=== PATIENT | female | born 1960 | race Caucasian/White ===

== ENCOUNTER 2021-01-04 15:04 | Inpatient (IN) ==
--- NOTE | 2021-01-04 16:29 | Emergency Department Note ---
History of Present Illness General Chief complaint: Swelling/Edema to Extremity Stated complaint: L LEG SWELLING, SOB, REF BY DOCTOR Time Seen by Provider: 01/04/21 16:28 Source: patient Mode of arrival: ambulatory Limitations: no limitations History of Present Illness Provider complaint: Shortness of breath, leg pain Onset (ago): day(s) 2 Location: chest and lower extremity Severity: moderate Maximum Pain Intensity: 5 Quality: + other (Discomfort) Relieved By: + none Exacerbated By: + movement Associated symptoms: + cough, + nausea/vomiting and + shortness of breath; no confusion, no diaphoresis, no fever/chills, no headaches, no loss of appetite, no malaise or no weakness Treatments prior to arrival: none Home Medications Medication Instructions Recorded Confirmed Type amlodipine 5 mg tablet 5 mg PO DAILY 01/04/21 01/04/21 History gabapentin 300 mg capsule 300 mg PO TID 01/04/21 01/04/21 History Past Med/Surg History Medical History (Updated 01/05/21 @ 00:53 by Tushar Jacobs MD) H/O: HTN (hypertension) Surgical History (Updated 01/04/21 @ 16:41 by Tushar Jacobs MD) History of knee replacement Social History (Updated 01/04/21 @ 16:42 by Tushar Jacobs MD) Smoking Status: Never smoker Hx Alcohol Use: Yes Hx Substance Use: No current occupational status: employed 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 and A total of 10 systems reviewed and were otherwise negative Physical Exam Vital Signs Vital Signs - 24 hr 01/04/21 15:14 01/04/21 17:26 01/04/21 17:27 Temperature 36.6 C Temperature Source Temporal Artery Scan Pulse Rate 81 73 Pulse Rate from SpO2 Sensor Pulse Rhythm Regular Pulse Strength Normal Respiratory Rate 18 16 Respiratory Effort / Characteristics Non-Labored Spontaneous Respiratory Depth Normal Respiratory Pattern Regular Blood Pressure 161/88 H Blood Pressure Mean 112 Pulse Oximetry 97 97 Oxygen Delivery Method Room Air Room Air Sepsis Recent Fever Within 48 Hours No Sepsis New/Unexplained Change in Mental Status No Sepsis Action Taken by Nursing No Action Required 01/04/21 17:30 01/04/21 18:06 01/04/21 19:03 Temperature Temperature Source Pulse Rate 77 85 73 Pulse Rate from SpO2 Sensor 75 80 73 Pulse Rhythm Pulse Strength Respiratory Rate 17 22 20 Respiratory Effort / Characteristics Respiratory Depth Respiratory Pattern Blood Pressure 154/82 H 134/91 Blood Pressure Mean 106 105 Pulse Oximetry 97 94 98 Oxygen Delivery Method Room Air Sepsis Recent Fever Within 48 Hours Sepsis New/Unexplained Change in Mental Status Sepsis Action Taken by Nursing 01/04/21 19:30 01/04/21 20:00 01/04/21 20:30 Temperature Temperature Source Pulse Rate 70 74 67 Pulse Rate from SpO2 Sensor 72 72 67 Pulse Rhythm Pulse Strength Respiratory Rate 18 17 16 Respiratory Effort / Characteristics Respiratory Depth Respiratory Pattern Blood Pressure 134/93 136/79 130/76 Blood Pressure Mean 106 98 94 Pulse Oximetry 96 97 96 Oxygen Delivery Method Room Air Room Air Room Air Sepsis Recent Fever Within 48 Hours Sepsis New/Unexplained Change in Mental Status Sepsis Action Taken by Nursing 01/04/21 21:00 01/04/21 21:30 Temperature Temperature Source Pulse Rate 69 73 Pulse Rate from SpO2 Sensor 71 74 Pulse Rhythm Pulse Strength Respiratory Rate 17 19 Respiratory Effort / Characteristics Respiratory Depth Respiratory Pattern Blood Pressure 139/81 149/92 H Blood Pressure Mean 100 111 Pulse Oximetry 95 95 Oxygen Delivery Method Room Air Room Air Sepsis Recent Fever Within 48 Hours Sepsis New/Unexplained Change in Mental Status Sepsis Action Taken by Nursing GENERAL: Wearing glasses and a mask. NAD, non-toxic. EYE EXAM: Normal conjunctiva. PERRL, no anisocoria and EOM's grossly intact w/o pain. NECK: Supple, no nuchal rigidity, no adenopathy, non-tender. No signs of meningismus. LUNGS: Clear to auscultation. Normal chest wall mechanics. HEART: NSR, subtle systolic ejection murmur noted. ABDOMEN: Abdomen soft, non-tender, normo-active bowel sounds, no masses, no rebound or guarding. BACK: No CVA TTP. SKIN: No rashes and no bruising. UPPER EXTREMITIES: Upper extremities are grossly normal. LOWER EXTREMITIES: Grossly normal, no obvious asymmetry or edema, negative Homans' sign, well-healed left anterior knee incisional scar. NEURO EXAM: A&O x3, cranial nerves II-XII grossly intact, normal speech, moves all 4 extremities on command w/o issue. Course Course Cardiac monitoring: An order was placed for continuous cardiac monitoring. The monitor shows a rate of 81 with sinus rhythm. Administered Medications Discontinued Medications Aspirin (Aspirin Chew 324 Mg) 324 mg PO NOW STA Stop: 01/04/21 19:57 Last Admin: 01/04/21 20:05 Dose: 324 mg Documented by: [id number] Sodium Chloride (Nss) 500 mls @ 999 mls/hr IV .Q31M STA Stop: 01/04/21 17:09 Last Infusion: 01/04/21 19:02 Dose: 0 mls/hr Documented by: [id number] Admin: 01/04/21 17:42 Dose: 999 mls/hr Documented by: [id number] Ioversol (Optiray 320 125ml) 116 ml IV ONCE ONE Stop: 01/04/21 17:57 Last Admin: 01/04/21 17:56 Dose: 116 ml Documented by: [id number] Nitroglycerin (Nitroglycerin Sl 0.4 Mg/Tab Tab) 0.4 mg SL NOW STA Stop: 01/04/21 19:57 Last Admin: 01/04/21 20:05 Dose: 0.4 mg Documented by: [id number] Medical Decision Making Differential Diagnosis Reactive airway disease, pneumonia, pneumothorax, COPD, CHF, infections, cardiac ischemia, pulmonary embolism, musculoskeletal, gastrointestinal, as well as other pathologies. Medical Records Attestation: I reviewed the patient's medical records. Home Medications Current Medication List: was personally reviewed by me Laboratory Data Attestation: I reviewed the patient's lab results. Result diagrams: 01/04/21 16:56 01/04/21 16:56 Lab Results 01/04/21 01/04/21 01/04/21 Range/Units 16:56 16:56 19:43 WBC 7.44 (4.8-10.8) K/uL RBC 4.53 (4.2-5.4) M/uL Hgb 14.2 (12.0-16.0) g/dL Hct 41.7 (37-47) % MCV 92.1 (80-100) fL MCH 31.3 (25-34) pg MCHC 34.1 (32-36) g/dL RDW Std Deviation 45.3 (36.4-46.3) fL RDW Coeff of Mil 13.4 (11.5-14.5) % Plt Count 285 (130-400) K/uL MPV 11.0 H (7.4-10.4) fL Immature Gran % (Auto) 0.3 % Neut % (Auto) 62.5 % Lymph % (Auto) 24.7 % [place] % (Auto) 7.9 % Eos % (Auto) 4.3 % Baso % (Auto) 0.3 % Neut # (Auto) 4.65 (1.4-6.5) K/uL Lymph # (Auto) 1.84 (1.2-3.4) K/uL [place] # (Auto) 0.59 (0.11-0.59) K/uL Eos # (Auto) 0.32 (0-0.5) K/uL Baso # (Auto) 0.02 (0-0.2) K/uL Immature Gran # (Auto) 0.02 (0.00-0.02) K/uL Sodium 140 (136-145) mmol/L Potassium 3.9 (3.5-5.1) mmol/L Chloride 109 H (98-107) mmol/L Carbon Dioxide 25 (21-32) mmol/L Anion Gap 6.0 (3-11) BUN 11 (7-18) mg/dl Creatinine 0.74 (0.6-1.2) mg/dl Est Cr Clr Drug Dosing 99.3 ml/min Est GFR ( Amer) 102.8 ml/min Est GFR (Non-Af Amer) 88.7 ml/min BUN/Creatinine Ratio 14.3 (10-20) Glucose 87 (70-99) mg/dl Calcium 9.4 (8.5-10.1) mg/dl Magnesium 2.3 (1.8-2.4) mg/dl Total Bilirubin 0.2 (0.2-1) mg/dl AST 22 (15-37) U/L ALT 26 (12-78) U/L Alkaline Phosphatase 118 H (45-117) U/L Troponin I < 0.015 0.015 (0-0.045) ng/ml NT-Pro-B Natriuret Pep 82 (0-900) pg/ml Total Protein 7.6 (6.4-8.2) gm/dl Albumin 3.7 (3.4-5.0) gm/dl Globulin 3.9 (2.5-4.0) gm/dl Albumin/Globulin Ratio 0.9 (0.9-2) COVID-19 Eval Order SARS-CoV-2 (PCR) (Negative) 01/04/21 01/04/21 Range/Units 21:25 21:25 WBC (4.8-10.8) K/uL RBC (4.2-5.4) M/uL Hgb (12.0-16.0) g/dL Hct (37-47) % MCV (80-100) fL MCH (25-34) pg MCHC (32-36) g/dL RDW Std Deviation (36.4-46.3) fL RDW Coeff of Mil (11.5-14.5) % Plt Count (130-400) K/uL MPV (7.4-10.4) fL Immature Gran % (Auto) % Neut % (Auto) % Lymph % (Auto) % [place] % (Auto) % Eos % (Auto) % Baso % (Auto) % Neut # (Auto) (1.4-6.5) K/uL Lymph # (Auto) (1.2-3.4) K/uL [place] # (Auto) (0.11-0.59) K/uL Eos # (Auto) (0-0.5) K/uL Baso # (Auto) (0-0.2) K/uL Immature Gran # (Auto) (0.00-0.02) K/uL Sodium (136-145) mmol/L Potassium (3.5-5.1) mmol/L Chloride (98-107) mmol/L Carbon Dioxide (21-32) mmol/L Anion Gap (3-11) BUN (7-18) mg/dl Creatinine (0.6-1.2) mg/dl Est Cr Clr Drug Dosing ml/min Est GFR ( Amer) ml/min Est GFR (Non-Af Amer) ml/min BUN/Creatinine Ratio (10-20) Glucose (70-99) mg/dl Calcium (8.5-10.1) mg/dl Magnesium (1.8-2.4) mg/dl Total Bilirubin (0.2-1) mg/dl AST (15-37) U/L ALT (12-78) U/L Alkaline Phosphatase (45-117) U/L Troponin I (0-0.045) ng/ml NT-Pro-B Natriuret Pep (0-900) pg/ml Total Protein (6.4-8.2) gm/dl Albumin (3.4-5.0) gm/dl Globulin (2.5-4.0) gm/dl Albumin/Globulin Ratio (0.9-2) COVID-19 Eval Order Covid19 at [facility] SARS-CoV-2 (PCR) NEGATIVE (Negative) Imaging Data Radiologist's Impression: Chest CTA 01/04/21 16:39 CT angio chest PE protocol CT DOSE: 571.95 mGy.cm HISTORY: 60 years-old Female with Dyspnea. Acute shortness of breath TECHNIQUE: Multiple CTA images of the chest were obtained after the intravenous administration of 116 ml Optiray. Coronal and sagittal MIPS were obtained from the axial data set and were submitted for review. All measurements were obtained according to NASCET criteria. A dose lowering technique was utilized adhering to the principles of ALARA. COMPARISON: None. FINDINGS: CTA: The heart is upper limits of normal in size. Mild coronary artery calcifications no thoracic aortic aneurysm or dissection. No pulmonary emboli identified. Inferior lung bases are not imaged. CT CHEST: Unremarkable thyroid. There is no adenopathy. No pneumothorax, pleural effusion, airspace consolidation or overt pulmonary edema. 4 mm solid nodule of the right lower lobe, image 108 series 4. The central airways are patent. No pneumoperitoneum. Mild wall thickening of the distal esophagus with tiny hiatal hernia. Gastric banding. Colonic diverticulosis unremarkable soft tissues. There is no acute fracture. IMPRESSION: 1. No acute intrathoracic abnormality. No pulmonary emboli. 2. No pleural effusion or adenopathy. 3. 4 mm solid nodule of the right lower lobe. Please refer to below summary of Fleischner criteria recommendations for follow- up of incidental CT nodules (Emely Donaldson, Guidelines for management of small pulmonary nodules detected on CT scans: A statement from the Fleischner Society, Radiology 237: [phone].) SOLID NODULES Solitary nodule size: <6 mm * Low risk patients: no follow-up needed * high risk patients: optional CT at 12 months Note: newly detected indeterminate nodule in persons 35 years of age or older. * Low risk patients: minimal or absent history of smoking and/or other known r isk factors * high risk patients: history of smoking or of other known risk factors (e.g. first degree relative with lung cancer, or exposure to asbestos, radon, uranium) * if a nodule up to 8 mm is partly solid or is ground glass further follow-up is required after 24 months to exclude possible slow growing adenocarcinoma (TORRES) ACT 112: Negative or not required by law. The above report was generated using voice recognition software. It may contain grammatical, syntax or spelling errors. Electronically signed by: Nilay Harris M.D. 01/04/2021 6:15 PM Venous Doppler Study 01/04/21 16:39 US venous doppler LE LT HISTORY: 60 years-old Female Dyspnea, recent nerve ablation w/ calf pain acute pain and swelling of the left lower leg COMPARISON: None TECHNIQUE: Multiple real-time sonographic images of the left lower extremity deep venous structures were obtained assessing grayscale appearance, color and spectral flow FINDINGS: Normal flow, compressibility, phasicity and augmentation. IMPRESSION: No sonographic evidence of deep venous thrombosis. ACT 112: Negative or not required by law. The above report was generated using voice recognition software. It may contain grammatical, syntax or spelling errors. Electronically signed by: Nilay Harris M.D. 01/04/2021 6:48 PM ECG Data Additional Comments: Normal sinus rhythm, rate of 74, normal intervals, normal axis, T wave version in lead III and V3. MDM Narrative Patient presented due to concern for left lower extremity swelling associated shortness of breath. The patient is a family history of CABG in mother in her 50s. The patient has complained of some exertional symptoms as well. Patient denies infectious symptoms. Patient denies any fevers or chills. Blood work is obtained along with an ultrasound of the left lower extremity and did have a CT angiography of the chest completed. Patient's EKG does show some T wave inversions anteriorly and inferiorly. The patient CT angiography does show no evidence of PE. The patient's ultrasound does not show any evidence of DVT. Patient was still having some discomfort patient was tried with some aspirin and nitro which did not much improve her symptoms. After further discussion the patient does have a heart score of 4 puts the patient at moderate risk. I did speak the on-call hospitalist Dr. Campbell and the patient was admitted to the medicine service. Patient's initial troponin was less than 0.015 and her repeat was 0.015. Impression & Plan Atypical chest pain, Acute dyspnea Discharge Plan Visit Data Chief Complaint: Swelling/Edema to Extremity Stated Complaint: L LEG SWELLING, SOB, REF BY DOCTOR ED Provider: Tushar Jacobs Discharge Problem: Atypical chest pain, Acute dyspnea Patient Disposition: Admitted As Inpatient Discharge Instructions Interventions: ED Discharge Assessment Last Done: 01/04/21 23:49
[2021-01-04] MEDS ORDERED: SODIUM CHLORIDE 0.9% 500 ML IV STA (16:39)
[2021-01-04 17:07] LABS: Basophils # (auto) 0.02 K/uL (0-0.2); Basophils % (auto) 0.3 %; Eosinophils # (auto) 0.32 K/uL (0-0.5); Eosinophils % (auto) 4.3 %; Hematocrit (blood only) 41.7 % (37-47); Hemoglobin 14.2 g/dL (12.0-16.0); Immature Granulocytes # (auto) 0.02 K/uL (0.00-0.02); Immature Granulocytes % (auto) 0.3 %; Lymphocytes # (auto) 1.84 K/uL (1.2-3.4); Lymphocytes % (auto) 24.7 %; Mean Corpuscular Hemoglobin 31.3 pg (25-34); Mean Corpuscular Hgb Conc 34.1 g/dL (32-36); Mean Corpuscular Volume 92.1 fL (80-100); Monocytes # (auto) 0.59 K/uL (0.11-0.59); Monocytes % (auto) 7.9 %; Neutrophils # (auto) 4.65 K/uL (1.4-6.5); Neutrophils % (auto) 62.5 %; Platelet Count 285 K/uL (130-400); RDW Coefficient of Variation 13.4 % (11.5-14.5); RDW Standard Deviation 45.3 fL (36.4-46.3); Red Blood Count 4.53 M/uL (4.2-5.4); White Blood Count 7.44 K/uL (4.8-10.8)
[2021-01-04 17:24] LABS: Alanine Aminotransferase 26 U/L (12-78); Albumin Level 3.7 gm/dl (3.4-5.0); Aspartate Aminotransferase 22 U/L (15-37); BUN Creatinine Ratio 14.3 (10-20); Blood Urea Nitrogen 11 mg/dl (7-18); Calcium 9.4 mg/dl (8.5-10.1); Carbon Dioxide 25 mmol/L (21-32); Chloride 109 mmol/L (98-107); Creatinine Clr Calc Pharmacy 99.3 ml/min; Est GFR (African American) 102.8 ml/min; Est GFR (Non-African American) 88.7 ml/min; Glucose 87 mg/dl (70-99); Magnesium 2.3 mg/dl (1.8-2.4); Potassium 3.9 mmol/L (3.5-5.1); Sodium 140 mmol/L (136-145)
[2021-01-04 17:28] LABS: Albumin Globulin Ratio 0.9 (0.9-2); Alkaline Phosphatase 118 U/L (45-117); Bilirubin,Total 0.2 mg/dl (0.2-1); Globulin 3.9 gm/dl (2.5-4.0); NT Pro B Type Natriuretic Pept 82 pg/ml (0-900); Total Protein 7.6 gm/dl (6.4-8.2); Troponin I < 0.015 ng/ml (0-0.045)
[2021-01-04] MEDS ORDERED: OPTIRAY 320 125ml IV ONE (17:56)
--- NOTE | 2021-01-04 18:17 | CT Scan Report ---
CT angio chest PE protocol CT DOSE: 571.95 mGy.cm HISTORY: 60 years-old Female with Dyspnea. Acute shortness of breath TECHNIQUE: Multiple CTA images of the chest were obtained after the intravenous administration of 116 ml Optiray. Coronal and sagittal MIPS were obtained from the axial data set and were submitted for review. All measurements were obtained according to NASCET criteria. A dose lowering technique was u tilized adhering to the principles of ALARA. COMPARISON: None. FINDINGS: CTA: The heart is upper limits of normal in size. Mild coronary artery calcifications no thoracic aortic a neurysm or dissection. No pulmonary emboli identified. Inferior lung bases are not imaged. CT CHEST: Unremarkable thyroid. There is no adenopathy. No pneumothorax, pleural effusion, airspace consolidati on or overt pulmonary edema. 4 mm solid nodule of the right lower lobe, image 108 series 4. The centr al airways are patent. No pneumoperitoneum. Mild wall thickening of the distal esophagus with tiny hiatal hernia. Gastric ba nding. Colonic diverticulosis unremarkable soft tissues. There is no acute fracture. IMPRESSION: 1. No acute intrathoracic abnormality. No pulmonary emboli. 2. No pleural effusion or adenopathy. 3. 4 mm solid nodule of the right lower lobe. Please refer to below summary of Fleischner criteria recommendations for follow-up of incidental CT n odules (Emely Donaldson, Guidelines for management of small pulmonary nodules detected on CT scans: A sta tement from the Fleischner Society, Radiology 237: [phone].) SOLID NODULES Solitary nodule size: <6 mm * Low risk patients: no follow-up needed * high risk patients: optional CT at 12 months Note: newly detected indeterminate nodule in persons 35 years of age or older. * Low risk patients: minimal or absent history of smoking and/or other known risk factors * high risk patients: history of smoking or of other known risk factors (e.g. first degree relative with lung cancer, or exposure to asbestos, radon, uranium) * if a nodule up to 8 mm is partly solid or is ground glass further follow-up is required after 24 m onths to exclude possible slow growing adenocarcinoma (TORRES) ACT 112: Negative or not required by law. The above report was generated using voice recognition software. It may contain grammatical, syntax o r spelling errors. Electronically signed by: Nilay Harris M.D. 01/04/2021 6:15 PM
--- NOTE | 2021-01-04 18:50 | Ultrasound Report ---
US venous doppler LE LT HISTORY: 60 years-old Female Dyspnea, recent nerve ablation w/ calf pain acute pain and swelling of the left lower leg COMPARISON: None TECHNIQUE: Multiple real-time sonographic images of the left lower extremity deep venous structures w ere obtained assessing grayscale appearance, color and spectral flow FINDINGS: Normal flow, compressibility, phasicity and augmentation. IMPRESSION: No sonographic evidence of deep venous thrombosis. ACT 112: Negative or not required by law. The above report was generated using voice recognition software. It may contain grammatical, syntax o r spelling errors. Electronically signed by: Nilay Harris M.D. 01/04/2021 6:48 PM
[2021-01-04] MEDS ORDERED: NITROGLYCERIN SL 0.4 MG/TAB TAB SL STA (19:56)
[2021-01-04] MEDS ORDERED: ASPIRIN CHEW 324 MG PO STA (19:56)
--- NOTE | 2021-01-05 00:17 | History and Physical Report ---
DATE OF ADMISSION: 01/04/2021. CHIEF COMPLAINT: Chest pain on exertion, shortness of breath on exertion, and edema in lower extremities. HISTORY OF PRESENT ILLNESS: This is a 60-year-old female with past medical history significant for intermittent asthma, obesity, hot flashes due to menopause. The patient recently had nerve ablation of the left lower extremity. The patient states in April of 2019, she had a left total knee arthroplasty. Since then, she is having a lot of pain in left knee and recently in [place] on 01/01/2021 she had ablation of the nerves that improved her pain, but she still has some pain in the calf.Yesterday she noticed swelling in the legs and also she has some shortness of breath with exertion and some chest tightness. Chest tightness and Sob were more with exertion and at rest was better. That is the reason she came here and she had lower extremity Doppler and CTA of the chest, which were unremarkable. She has significant family history of heart disease. Maternal grandfather had HI at the age of 50. Currently resting comfortably and hemodynamically stable. She has some headache with nitro. Nitro did not relieve her chest tightness. She has no blurred visions,no double visions, no earache, no runny nose, no sore throat. Occasionally she has dry cough going on for the last more than a year. Denies any fever or chills. Appetite is okay. No dysphagia. Was nauseous. No abdominal pain, normal bowel and bladder movements. Denies any blood in the stools or black stools. No hematuria. Currently resting comfortably and hemodynamically stable. ALLERGIES: ALLERGIES TO ADHESIVE TAPE, CAT DANDER, CHLORHEXIDINE, CODEINE, LATEX, PERCOCET, POLLEN, TOMATO. PAST MEDICAL HISTORY: As mentioned above. PAST SURGICAL HISTORY: Left total knee arthroplasty; biopsy of left breast lesion; colonoscopy; dental surgery; left great toe bone spur removal; gastric band placement, laparoscopic; left ACL repair; left revision of the knee; partial hysterectomy for cervical dysplasia; bilateral breast biopsy for fibrocystic disease. MEDICATIONS: Currently the patient is on amlodipine 5 mg p.o. daily, gabapentin 300 mg p.o. daily, albuterol p.r.n. FAMILY HISTORY: Significant for mother has Crohn's disease, melanoma; father has prostate cancer, parkinsonism, abdominal and femoral artery aneurysm, melanoma, hypertension, diabetes; sister has Crohn's disease; sister has melanoma; paternal grandmother has uterine cancer; maternal grandfather had HI at age of 50; paternal grandfather had colon cancer at age of 70. SOCIAL HISTORY: . Former smoker, quit in 1997. Alcohol, drinks one to two every 2-3 months. No drug use. REVIEW OF SYSTEMS: As per HPI. Rest of the review of systems is negative. PHYSICAL EXAMINATION: GENERAL: The patient is of moderate build, not in acute distress. VITAL SIGNS: Temperature 36.6, pulse 73, respiratory rate 19, blood pressure 149/92, oxygen 95% on room air. HEENT: Pupils equal, round and reactive to light. Oral mucosa moist. NECK: No JVD. No carotid bruits. CARDIOVASCULAR: S1 and S2 heard. Regular rate and rhythm. No murmur, no gallop. RESPIRATORY SYSTEM: Normal AP diameter. No accessory muscle use. No wheezing, no crackles. ABDOMEN: Soft, bowel sounds are present, nontender, no distention. CENTRAL NERVOUS SYSTEM: Cranial nerves II through XII are grossly intact, nonfocal. EXTREMITIES: Trace pedal edema, slight erythematous changes seen in the left ankle region. LABORATORY DATA: WBC 7.4, hemoglobin 14.2, hematocrit 41.7, platelets 285. Sodium 140, potassium 3.9, chloride 109, bicarbonate 25, BUN 11, creatinine 0.7, serum glucose 87, calcium 9.4, magnesium 2.3, total bilirubin 0.2, AST 22, ALT 26, alkaline phosphatase 118. Troponin I less than 0.015. BNP 82. IMAGING DATA: Venous Doppler study of the left lower extremity, no DVT. CTA of the chest, no PE, no acute findings. A 4 mm solid nodule of the right lower lobe. EKG: Normal sinus rhythm, rate of 74, no acute ST changes seen. ASSESSMENT AND PLAN: This is a 60-year-old female who presents with lower extremity edema and shortness of breath and chest pain on exertion. 1. Lower extremity edema status post nerve ablation on 01/01/2021 for left knee pain post knee replacement. The pain is improved, but she developed swelling. The swelling seems to be getting better. No deep venous thrombosis on the Doppler. 2. Chest pain and shortness of breath, more with exertion: EKG and troponins are unremarkable so far. CTA of the chest unremarkable. As the patient has risk factors of hypertension, obesity, and age, we will rule out acute coronary syndrome with serial enzymes and echo. Will keep her n.p.o. until seen by cardiology. Further recommendations as per cardiology. Monitor in the [employer] tele. Follow the lipid profile. 3. Hypertension: Continue amlodipine. 4. History of intermittent asthma: albuterol p.r.n. 5. Obesity: Needs counseling. 6. Lung nodule .4mm solid nodule right lower lobe. Needs followup. 7. Deep venous thrombosis prophylaxis: Sequential compression devices for now. DISPOSITION: Observation in [facility]. PT/OT prior to discharge. Social service to help with discharge planning. Level 1 full code. Job ID: [id number] MTDD
[2021-01-05] MEDS ORDERED: NITROGLYCERIN SL 0.4 MG/TAB TAB SL PRN (00:45)
[2021-01-05] MEDS ORDERED: ONDANSETRON INJ 2 MG/ML 2 ML VIAL IV PRN (00:45)
[2021-01-05] MEDS ORDERED: ALBUTEROL HFA 8 GM INHALER INH PRN (00:45)
[2021-01-05] MEDS ORDERED: PATIENT'S ALLERGY INFO NEEDS ENTERED SCH (01:15)
[2021-01-05] MEDS: ACETAMINOPHEN 325 MG TAB PO PRN ×2 (04:17→10:15)
[2021-01-05] MEDS ORDERED: MoRPHine SULFATE 4 MG/ML 1 ML CARP\\VIAL IV STA (05:34)
[2021-01-05 05:38] LABS: Basophils # (auto) 0.02 K/uL (0-0.2); Basophils % (auto) 0.4 %; Eosinophils # (auto) 0.36 K/uL (0-0.5); Eosinophils % (auto) 6.8 %; Hematocrit (blood only) 39.2 % (37-47); Hemoglobin 13.1 g/dL (12.0-16.0); Immature Granulocytes # (auto) 0.01 K/uL (0.00-0.02); Immature Granulocytes % (auto) 0.2 %; Lymphocytes # (auto) 1.71 K/uL (1.2-3.4); Lymphocytes % (auto) 32.5 %; Mean Corpuscular Hemoglobin 30.6 pg (25-34); Mean Corpuscular Hgb Conc 33.4 g/dL (32-36); Mean Corpuscular Volume 91.6 fL (80-100); Mean Platelet Volume 10.5 fL (7.4-10.4); Monocytes # (auto) 0.56 K/uL (0.11-0.59); Monocytes % (auto) 10.6 %; Neutrophils % (auto) 49.5 %; Platelet Count 246 K/uL (130-400); RDW Coefficient of Variation 13.4 % (11.5-14.5); RDW Standard Deviation 44.7 fL (36.4-46.3); Red Blood Count 4.28 M/uL (4.2-5.4); White Blood Count 5.26 K/uL (4.8-10.8)
[2021-01-05] MEDS ORDERED: MoRPHine SULFATE 4 MG/ML 1 ML CARP\\VIAL ONE (05:50)
[2021-01-05 05:54] LABS: BUN Creatinine Ratio 11.2 (10-20); Calcium 8.5 mg/dl (8.5-10.1); Creatinine Clr Calc Pharmacy 109.8 ml/min; Est GFR (African American) 111.5 ml/min; Est GFR (Non-African American) 96.2 ml/min; Magnesium 2.3 mg/dl (1.8-2.4); Potassium 3.7 mmol/L (3.5-5.1)
[2021-01-05 05:59] LABS: Troponin I 0.02 ng/ml (0-0.045)
[2021-01-05] MEDS ORDERED: SODIUM CHLORIDE 0.9% 1000ML 1,000 ML IV SCH (06:30)
[2021-01-05] MEDS: NITROGLYCERIN 2% OINTMENT 30GM TUBE EXT SCH ×2 (07:13→14:01)
[2021-01-05] MEDS: GABAPENTIN 300 MG CAP PO SCH ×3 (07:51→20:15)
--- NOTE | 2021-01-05 08:21 | Electrocardiogram Report ---
Test Reason : Blood Pressure : / mmHG Vent. Rate : 074 BPM Atrial Rate : 074 BPM P-R Int : 166 ms QRS Dur : 084 ms QT Int : 408 ms P-R-T Axes : 000 -09 016 degrees QTc Int : 452 ms Normal sinus rhythm Poor R wave progression, consider anterior HI vs. lead placement vs. LVH Abnormal ECG No previous ECGs available Confirmed by Mathew Eid ([id number]) on 01/05/2021 8:21:03 AM Referred By: REFERRED SELF Confirmed By:Mathew Eid
--- NOTE | 2021-01-05 08:50 | Electrocardiogram Report ---
Test Reason : Blood Pressure : / mmHG Vent. Rate : 080 BPM Atrial Rate : 080 BPM P-R Int : 168 ms QRS Dur : 084 ms QT Int : 408 ms P-R-T Axes : 028 -13 001 degrees QTc Int : 470 ms Sinus rhythm with frequent Premature ventricular complexes Otherwise normal ECG When compared with ECG of 04-JAN-2021 17:28, Premature ventricular complexes are now Present Confirmed by Mathew Eid ([id number]) on 01/05/2021 8:49:58 AM Referred By: REFERRED SELF Confirmed By:Mathew Eid
[2021-01-05] MEDS ORDERED: amLODIPine BESYLATE 5 MG TAB PO SCH (09:00)
--- NOTE | 2021-01-05 09:00 | Electrocardiogram Report ---
Test Reason : Blood Pressure : / mmHG Vent. Rate : 074 BPM Atrial Rate : 074 BPM P-R Int : 162 ms QRS Dur : 086 ms QT Int : 424 ms P-R-T Axes : -04 -10 004 degrees QTc Int : 470 ms Normal sinus rhythm Poor R wave progression, consider anterior AL vs. lead placement vs. LVH Abnormal ECG When compared with ECG of 05-JAN-2021 05:05, Premature ventricular complexes are no longer Present Confirmed by Mathew Eid ([id number]) on 01/05/2021 9:00:12 AM Referred By: REFERRED SELF Confirmed By:Mathew Eid
--- NOTE | 2021-01-05 09:42 | Cardiology Consultation ---
Date of Consultation January 05, 2021 Assessment & Plan (1) Chest pain at rest: (2) HTN (hypertension): (3) Dyslipidemia: (4) Family history of ischemic heart disease: 60-year-old female with history of hypertension, dyslipidemia, history of tobacco abuse, obesity/inactivity, and family history of coronary artery disease as described. Patient presents with waxing and waning chest discomfort initially with activity and now nearly constant at rest. EKGs demonstrate new T wave changes anteriorly and subtly inferiorly. Troponins as follows: <0.015, 0.015, 0.20 ng/mL. Resting echocardiography shows preserved LV systolic function without wall motion abnormality. CT of the chest notable for coronary artery calcifications. Options of management discussed with patient. Risks and benefits of diagnostic cardiac catheterization discussed. Patient wishes to proceed accordingly. Initiate Aspirin and statin. Hold nitro paste, RE: headache; administer acetaminophen. Supervising Physician Co-Signing Physician Notes Patient was seen and examined and personally discussed procedure and plans. Ongoing or recurrent symptoms with patient concern regarding multiple cardiovascular risk factors and recurrent complaints. Procedure and risks of diagnostic cardiac catheterization and coronary intervention if indicated were discussed in detail and informed consent was obtained. Further recommendations pending the results of study to be performed this morning History of Present Illness Reason for Consultation: Chest pain Requesting Physician: Adrian Attending Physician: Norberto History of Present Illness Patient is a 60-year-old female who is being seen at the request of Dr. Campbell. Reasons for consultation include chest pain and shortness of breath. The patient notes having previously undergone knee surgery and more recently undergoing nerve ablation of the left lower extremity at [place]. She notes concern for a DVT/PE due to pain, swelling, shortness of breath, and chest pres sure. Ultrasound of the left lower extremity showed no DVT. CT scan of the chest showed no acute intrathoracic abnormality. No pulmonary emboli. Coronary artery calcifications were observed. A 4 mm solid nodule of the right lower lung was also noted. The patient's chest pressure seemed to start on Monday, initially occurring with activity [place]. She describes it as a chest pressure that is waxed and waned that was present more now than not. She also notes an intermittent sharp, stabbing left scapular pain as if someone was twisting and knife into her shoulder. She notes mild diaphoresis with the pressure. Notes no significant improvement with use of nitroglycerin though with resultant headache. Patient notes prior cardiac work-up approximately 2 years ago while living in the [facility]. Work-up at that time was negative. Last year, December 2019, the patient underwent Lexiscan nuclear stress testing which was nonischemic. Risk factors include hypertension, dyslipidemia, history of tobacco abuse, family history of coronary artery disease, obesity/inactivity. Family History: Mother and 2 aunts with CAD status post CABG. Maternal grandfather suffered an MN at the age of 50. Her father had an arrhythmia and with Parkinson's. She has 2 siblings with arrhythmias. Social History: Reformed smoker having quit 23 years ago. Rare alcohol. No [place] legal drug use. . 2 sons without cardiac issues. 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 Allergies Allergy/AdvReac Type Severity Reaction Status Date / Time chlorhexidine Allergy Unknown Verified 01/05/21 03:03 latex Allergy Unknown Verified 01/05/21 03:03 nickel Allergy Unknown Verified 01/05/21 03:03 oxycodone Allergy (PERCOCET Verified 01/05/21 03:06 BUT NOT OXY OR APAP; PER PATIENT)-UNKNOWN RXN tomato Allergy Unknown Verified 01/05/21 03:03 Home Medications Medication Instructions Recorded Confirmed Type amlodipine 5 mg tablet 5 mg PO DAILY 01/04/21 01/04/21 History gabapentin 300 mg capsule 300 mg PO TID 01/04/21 01/04/21 History Patient History Medical History Chest pain at rest Dyslipidemia Family history of ischemic heart disease H/O: HTN (hypertension) HTN (hypertension) Surgical History History of knee replacement Social History Smoking Status: Never smoker Second Hand Exposure: No; Do You Dip or Chew Tobacco: No; Tobacco Cessation Education Requested by Patient: No Hx Alcohol Use: Yes Alcohol type: beer Hx Substance Use: No Preferred Language: Vietnamese Communication Ability: Effective Innovation Analyst Required: No Beliefs That Will Affect Care: None marital status: Unknown Current Living Situation: Alone Current Living Situation Comment: at home, independently, with a dog. 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 Notes gaining 60 pounds following knee issues. History of gastric lap band. Notes early signs of stomach ulcers approximately 2 years ago. History of asthma, seasonal allergies, and obstructive sleep apnea. Complete review of system is otherwise as stated above, negative, noncontributory. Physical Exam Physical Exam: General: A&Ox3. NAD. HENT: Normocephalic. Atraumatic. Eyes: PER. Conjunctiva pink, sclera clear. Neck: No carotid bruits. No JVD. No HJR. Heart: RRR. Grade II systolic ejection murmur. No diastolic murmur. No rub. No gallop. Lungs: Clear to auscultation. Abdomen: +BS. Soft. Nontender. No masses or organomegaly. Extremities: No clubbing, cyanosis, or edema. Limited neurological examination is without focal deficits. Pulses: radial=2/4, posterior tibial=2/4. Results & Data ([facility]) Vital Signs (Past 12 Hours) Vital Signs Temp Pulse Pulse Resp BP BP Pulse Ox 01/05/21 07:53 36.6 C 66 16 132/77 95 01/05/21 05:05 79 20 137/76 91 01/05/21 04:57 75 18 147/83 H 94 01/05/21 04:44 36.3 C L 66 18 133/86 95 01/05/21 00:45 78 01/05/21 00:15 36.4 C L 68 12 183/93 H 99 01/04/21 23:30 73 21 151/91 H 97 01/04/21 23:00 71 18 146/93 H 96 01/04/21 22:30 74 18 143/91 H 95 01/04/21 22:00 74 15 151/87 H 97 Pulse Ox 01/05/21 07:53 01/05/21 05:05 01/05/21 04:57 01/05/21 04:44 01/05/21 00:45 01/05/21 00:15 99 01/04/21 23:30 01/04/21 23:00 01/04/21 22:30 01/04/21 22:00 Laboratory Results Laboratory Results - last 24 hr 01/04/21 01/04/21 01/04/21 16:56 16:56 19:43 WBC 7.44 RBC 4.53 Hgb 14.2 Hct 41.7 MCV 92.1 MCH 31.3 MCHC 34.1 RDW Std Deviation 45.3 RDW Coeff of Mil 13.4 Plt Count 285 MPV 11.0 H Immature Gran % (Auto) 0.3 Neut % (Auto) 62.5 Lymph % (Auto) 24.7 Emmet % (Auto) 7.9 Eos % (Auto) 4.3 Baso % (Auto) 0.3 Neut # (Auto) 4.65 Lymph # (Auto) 1.84 Emmet # (Auto) 0.59 Eos # (Auto) 0.32 Baso # (Auto) 0.02 Immature Gran # (Auto) 0.02 Sodium 140 Potassium 3.9 Chloride 109 H Carbon Dioxide 25 Anion Gap 6.0 BUN 11 Creatinine 0.74 Est Cr Clr Drug Dosing 99.3 Est GFR ( Amer) 102.8 Est GFR (Non-Af Amer) 88.7 BUN/Creatinine Ratio 14.3 Glucose 87 Calcium 9.4 Magnesium 2.3 Total Bilirubin 0.2 AST 22 ALT 26 Alkaline Phosphatase 118 H Troponin I < 0.015 0.015 NT-Pro-B Natriuret Pep 82 Total Protein 7.6 Albumin 3.7 Globulin 3.9 Albumin/Globulin Ratio 0.9 Triglycerides Cholesterol LDL Cholesterol, Calc VLDL Cholesterol, Calc HDL Cholesterol Cholesterol/HDL Ratio COVID-19 Eval Order SARS-CoV-2 (PCR) 01/04/21 01/04/21 01/05/21 21:25 21:25 05:22 WBC 5.26 RBC 4.28 Hgb 13.1 Hct 39.2 MCV 91.6 MCH 30.6 MCHC 33.4 RDW Std Deviation 44.7 RDW Coeff of Mil 13.4 Plt Count 246 MPV 10.5 H Immature Gran % (Auto) 0.2 Neut % (Auto) 49.5 Lymph % (Auto) 32.5 Emmet % (Auto) 10.6 Eos % (Auto) 6.8 Baso % (Auto) 0.4 Neut # (Auto) 2.60 Lymph # (Auto) 1.71 Emmet # (Auto) 0.56 Eos # (Auto) 0.36 Baso # (Auto) 0.02 Immature Gran # (Auto) 0.01 Sodium Potassium Chloride Carbon Dioxide Anion Gap BUN Creatinine Est Cr Clr Drug Dosing Est GFR ( Amer) Est GFR (Non-Af Amer) BUN/Creatinine Ratio Glucose Calcium Magnesium Total Bilirubin AST ALT Alkaline Phosphatase Troponin I NT-Pro-B Natriuret Pep Total Protein Albumin Globulin Albumin/Globulin Ratio Triglycerides Cholesterol LDL Cholesterol, Calc VLDL Cholesterol, Calc HDL Cholesterol Cholesterol/HDL Ratio COVID-19 Eval Order Covid19 at [facility] SARS-CoV-2 (PCR) NEGATIVE 01/05/21 01/05/21 05:22 08:56 WBC RBC Hgb Hct MCV MCH MCHC RDW Std Deviation RDW Coeff of Mil Plt Count MPV Immature Gran % (Auto) Neut % (Auto) Lymph % (Auto) Emmet % (Auto) Eos % (Auto) Baso % (Auto) Neut # (Auto) Lymph # (Auto) Emmet # (Auto) Eos # (Auto) Baso # (Auto) Immature Gran # (Auto) Sodium 142 Potassium 3.7 Chloride 112 H Carbon Dioxide 28 Anion Gap 2.0 L BUN 7 Creatinine 0.67 Est Cr Clr Drug Dosing 109.8 Est GFR ( Amer) 111.5 Est GFR (Non-Af Amer) 96.2 BUN/Creatinine Ratio 11.2 Glucose 86 Calcium 8.5 Magnesium 2.3 Total Bilirubin AST ALT Alkaline Phosphatase Troponin I 0.020 0.016 NT-Pro-B Natriuret Pep Total Protein Albumin Globulin Albumin/Globulin Ratio Triglycerides 88 Cholesterol 237 H LDL Cholesterol, Calc 157 VLDL Cholesterol, Calc 18 HDL Cholesterol 62 Cholesterol/HDL Ratio 4 COVID-19 Eval Order SARS-CoV-2 (PCR)
[2021-01-05] MEDS ORDERED: MIDAZOLAM HCL 1 MG/ML 2ML VIAL ONE (11:28)
[2021-01-05] MEDS ORDERED: HEPARIN (PORCINE) 1000 UNIT/ML 10 ML (CATH LAB USE ONLY) ONE (11:29)
[2021-01-05] MEDS ORDERED: fentaNYL citrate 100 MCG/2 ML VIAL ONE (11:29)
[2021-01-05] MEDS ORDERED: NITROGLYCERIN/D5W 100MCG/ML 20ML SYR ONE (11:29)
[2021-01-05] MEDS ORDERED: niCARdipine HCL INJ 2.5 MG/ML 10 ML AMP ONE (11:29)
--- NOTE | 2021-01-05 11:36 | Pre Anesthesia Assessment ---
Date of Service January 05, 2021 Pre Sedation Assessment Vital Signs Temp Pulse Pulse Resp BP BP Pulse Ox 01/05/21 08:30 36.8 C 78 64 22 135/77 94 01/05/21 07:53 36.6 C 66 16 132/77 95 01/05/21 05:05 79 20 137/76 91 01/05/21 04:57 75 18 147/83 H 94 01/05/21 04:44 36.3 C L 66 18 133/86 95 01/05/21 00:45 78 01/05/21 00:15 36.4 C L 68 12 183/93 H 99 01/04/21 23:30 73 21 151/91 H 97 01/04/21 23:00 71 18 146/93 H 96 01/04/21 22:30 74 18 143/91 H 95 01/04/21 22:00 74 15 151/87 H 97 01/04/21 21:30 73 19 149/92 H 95 01/04/21 21:00 69 17 139/81 95 01/04/21 20:30 67 16 130/76 96 01/04/21 20:00 74 17 136/79 97 01/04/21 19:30 70 18 134/93 96 01/04/21 19:03 73 20 134/91 98 01/04/21 18:06 85 22 94 01/04/21 17:30 77 17 154/82 H 97 01/04/21 17:27 97 01/04/21 17:26 73 16 01/04/21 15:14 36.6 C 81 18 161/88 H 97 Pulse Ox 01/05/21 08:30 01/05/21 07:53 01/05/21 05:05 01/05/21 04:57 01/05/21 04:44 01/05/21 00:45 01/05/21 00:15 99 01/04/21 23:30 01/04/21 23:00 01/04/21 22:30 01/04/21 22:00 01/04/21 21:30 01/04/21 21:00 01/04/21 20:30 01/04/21 20:00 01/04/21 19:30 01/04/21 19:03 01/04/21 18:06 01/04/21 17:30 01/04/21 17:27 01/04/21 17:26 01/04/21 15:14 Cardiovascular + regular rate and + regular rhythm + murmur no JVD Respiratory normal respiratory effort, lungs clear to auscultation Pre-Sedation Airway Assessment Smoking Status: Never smoker NPO Status Date of Last Intake of Solid Food: 01/04/21 Procedure Planning Contraindications for Sedation: none Current Medications Reviewed: Yes Notes The planned sedation has been discussed with the patient. Informed Consent was obtained. I have identified the patient, determined the appropriateness of sedation and have assessed the patient immediately prior to the procedure. All medicine(s) and interventions are by my order.
--- NOTE | 2021-01-05 12:16 | Cardiac Catheterization ---
Cardiac Cath Procedure Brief Procedure Date January 05, 2021 Pre-Procedure Diagnosis Pre-Procedure Diagnosis: Angina AUC Score AUC Score: 7 Post-Procedure Diagnosis Post-Procedure Diagnosis: Mild CAD Procedure(s) Performed Procedure(s) Performed: Coronary Angiography, Left Heart Cath and LV Angiography Tutor Coordinator Gilberto Dunbar MD Worm Raiser(s) Cris Estimated Blood Loss Estimated Blood Loss: <15cc Medication(s) Medication(s): Fentanyl (12.5 mcg IV), Heparin (5000 units IV), Lidocaine 1% (Local infiltration access site), Nicardipine (250 mcg intra-arterial after arterial sheath insertion) and Versed (1 mg IV) Preliminary Findings Large-caliber right dominant coronary anatomy with minor luminal irregularities and no obstructive disease Normal left ventricular systolic function, EF 55% Normal left end-diastolic pressure, no transaortic valve gradient Recommendations Recommendations: Medical Therapy and/or Counseling Specimens Specimens: None Fluids (cc crystalloids) Fluids (cc crystalloids): 50 Anesthesia Start time: 1140, stop time: 1205 Procedural Complication(s) None Disposition PCU
--- NOTE | 2021-01-05 12:16 | Cardiac Catheterization ---
Cardiac Cath Procedure Full Procedure Date January 05, 2021 Pre-Procedure Diagnosis Pre-Procedure Diagnosis: Angina AUC Score AUC Score: 7 Post-Procedure Diagnosis Post-Procedure Diagnosis: Mild CAD Procedure(s) Performed Procedure(s) Performed: Coronary Angiography, Left Heart Cath and LV Angiography Analyst Geochemical Prospecting Gilberto Dunbar MD Kineseologist(s) Cris Guerra Estimated Blood Loss Estimated Blood Loss: <15cc Medication(s) Medication(s): Fentanyl (12.5 mcg IV), Heparin (5000 units IV), Lidocaine 1% (Local infiltration access site), Nicardipine (250 mcg intra-arterial after arterial sheath insertion) and Versed (1 mg IV) Summary of Findings Large-caliber right dominant coronary anatomy with minor luminal irregularities and no obstructive disease greater than 20% Normal left ventricular systolic function, EF 55% Normal left end-diastolic pressure, no transaortic valve gradient Coronary angiography: Right dominant anatomy Left main: Very long and large caliber vessel with 20% distal taper Left anterior descending: Large caliber type II vessel giving rise to a very large diagonal branch in its proximal third this vessel paralleling the left anterior descending to the apex. There is a less than 20% taper of the ostium with mild luminal irregularities in the distal vessel Left circumflex: Large but nondominant giving rise to 3 large marginal branches and a small posterior lateral branch. There is a 20% ostial taper Right coronary artery: Dominant distribution with 3 right ventricular branches along posterior descending artery and 2 small posterior ventricular branches. There are minor luminal irregularities in the distal vessel only LV angiography: Normal left her size and function no wall motion abnormalities EF 55%, no mitral insufficiency. LVEDP 9. No transaortic valve gradient Catheters: 6 Maori long glide radial artery sheath, 5 Maori [place], 5 Maori JR 5, 5 Maori straight pigtail Hemodynamics Rest Ao:: 139/73/14 Final Ao: 135/81/10 LV: 135/0/9 Recommendations Recommendations: Medical Therapy and/or Counseling Specimens Specimens: None Radiation Exposure (mGy) 1367 Contrast (mls) 115 Fluids (cc crystalloids) Fluids (cc crystalloids): 50 Anesthesia Start time: 1140, stop time: 1205 Procedural Complication(s) None Disposition PCU I attest to the content of the Intraoperative Record and any orders documented therein. Any exceptions are noted below. 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 Recurrent symptoms at rest today CAD Presenation: Stable angina Anginal Classification: CCS IV Heart Failure: No Cardiogenic Shock within 24 Hours: No Cardiac Arrest within 24 Hours: No Imaging Studies Past 6 Months: Yes Stress Studies Past 6 Months: No Standard Exercise Test: No Stress Echocardiogram: No Stress Testing w/SPECT MPI: No Cardiac CTA: No Coronary Anatomy Dominant: Right Left Main (% Stenosis): Distal (20% distal taper of the large long vessel) LAD (% Stenosis): Ostial (20%) and Mid (Mild irregularities) D1 (% Stenosis): Normal (Very large vessel paralleling the left anterior descending) Circumflex (% Stenosis): Ostial (20%) OM1 (% Stenosis): Normal OM2 (% Stenosis): Normal OM3 (% Stenosis): Normal L PL1 (% Stenosis): Normal RCA (% Stenosis): Distal (Mild luminal irregularities) R PDA (% Stenosis): Normal R PL1 (% Stenosis): Normal Left Ventricular Angiography EF (%): 55 Mitral Regurgitation: None Diagnostic Physicians Name: Gilberto Dunbar MD Status: Urgent Closure Device Percutaneous Entry Location: Radial Closure Device: Radial Band Recommendations: Medical Therapy and/or Counseling
--- NOTE | 2021-01-05 15:22 | Communication Note ---
Date of Service: January 05, 2021 pt admitted earlier today , please refer to H&P for detail 60 yo F presented with lower ext edema , intermittent sob , clay strong family hx of premature CAD appreciate input from cardiology , diagnostic cardiac cath reveals : non occlusive coronaries medical management recommended pt ordered statin added Aspirin norvasc D/lyndsay ( chronic lower ext edema ) low dose beta octavio ordered medication adjustment and cath finding updated to pt at bedside
[2021-01-05] MEDS: ROSUVASTATIN CALCIUM 20 MG TAB PO SCH (16:05)
--- NOTE | 2021-01-05 17:56 | Communication Note ---
Date of Service: January 05, 2021 Patient referred and underwent cardiac catheterization for persistent chest pain earlier today. Study demonstrated no obstructive coronary disease and preserved LV systolic function. Patient still with mild chest discomfort likely noncardiac in etiology Recommendations. Would treat underlying cardiovascular risk factors. Have discussed with patient Agree with discontinuing amlodipine given chronic pedal edema. Continue low-dose beta-octavio with metoprolol tartrate 12.5 mg twice per day Would add HECTOR inhibitor with lisinopril 5 mg/day Add statin to her regimen with rosuvastatin 10 mg/day Seek alternate source of current complaints
[2021-01-05] MEDS: METOPROLOL TARTRATE 25 MG TAB PO SCH (20:16)
[2021-01-06 07:02] LABS: BUN Creatinine Ratio 11.2 (10-20); Calcium 8.9 mg/dl (8.5-10.1); Creatinine Clr Calc Pharmacy 109.6 ml/min; Est GFR (African American) 111.5 ml/min; Est GFR (Non-African American) 96.2 ml/min; Potassium 3.8 mmol/L (3.5-5.1)
[2021-01-06] MEDS: GABAPENTIN 300 MG CAP PO SCH (08:28)
[2021-01-06] MEDS: METOPROLOL TARTRATE 25 MG TAB PO SCH (08:29)
[2021-01-06] MEDS: ROSUVASTATIN CALCIUM 20 MG TAB PO SCH (08:29)
[2021-01-06] MEDS ORDERED: ROSUVASTATIN CALCIUM 10 MG TAB PO SCH (09:00)
[2021-01-06] MEDS ORDERED: METOPROLOL TARTRATE 25 MG TAB PO SCH (09:00)
[2021-01-06] MEDS ORDERED: lisinopril 5 MG TAB PO SCH (09:00)
--- NOTE | 2021-01-06 09:06 | Electrocardiogram Report ---
Test Reason : Blood Pressure : / mmHG Vent. Rate : 064 BPM Atrial Rate : 064 BPM P-R Int : 168 ms QRS Dur : 086 ms QT Int : 434 ms P-R-T Axes : -07 001 012 degrees QTc Int : 447 ms Normal sinus rhythm Normal ECG When compared with ECG of 05-JAN-2021 06:08, Nonspecific T wave abnormality no longer evident in Anterior leads Confirmed by Mathew Eid ([id number]) on 01/06/2021 9:06:06 AM Referred By: REFERRED SELF Confirmed By:Mathew Eid
--- NOTE | 2021-01-06 10:30 | Cardiology Progress Note ---
Date of Service January 06, 2021 Assessment & Plan (1) Chest pain at rest: Plan: No evidence of coronary artery disease of significance to account for patient's symptoms. Patient with risk factors and would treat with optimal medical regimen as already ordered including low-dose beta-octavio, HECTOR inhibitor and statin. Given possible GI complaints would hold aspirin at this point in time Follow-up with PCP Can reestablish with cardiology on an as-needed basis (2) HTN (hypertension): (3) Dyslipidemia: (4) Family history of ischemic heart disease: Plan: 60-year-old female with history of hypertension, dyslipidemia, history of tobacco abuse, obesity/inactivity, and family history of coronary artery disease as described. Patient presents with waxing and waning chest discomfort initially with activity and now nearly constant at rest. EKGs demonstrate new T wave changes anteriorly and subtly inferiorly. Troponins as follows: <0.015, 0.015, 0.20 ng/mL. Resting echocardiography shows preserved LV systolic function without wall motion abnormality. CT of the chest notable for coronary artery calcifications. Options of management discussed with patient. Risks and benefits of diagnostic cardiac catheterization discussed. Patient wishes to proceed accordingly. Initiate Aspirin and statin. Hold nitro paste, RE: headache; administer acetaminophen. Admission and Anticipated Discharge Date Admission Date: January 05, 2021 Subjective Patient feels improved this morning. Right radial access healing well. No further chest pain. Blood pressures are better controlled. Review of Systems Review of Systems: All systems reviewed & are unremarkable except as noted in Subjective Physical Exam Constitutional: WD/WN, vitals as above Eyes: PERRL, conjunctivae normal, anicteric sclerae ENMT: external ear and nose normal, oropharynx normal Neck: trachea midline, no thyromegaly Respiratory: normal respiratory effort, lungs clear to auscultation Cardiovascular: Rate/Rhythm: regular rate and regular rhythm Heart Sounds: + murmur Palpation: normal PMI Vessels: radial pulses present (Radial access site healing well); no JVD Extremities: no edema Gastrointestinal (Abdomen): normal bowel sounds, soft, nontender, no hepatosplenomegaly Musculoskeletal: no cyanosis or clubbing, extremities motor strength 5/5 Skin: no rashes, warm and dry Neurologic: PERRL, EOMI, accommodation nl, no face palsy, no dysarthria Psychiatric: A+Ox3, euthymic affect Results & Data ([facility]) Vital Signs (Past 12 Hours) Vital Signs Temp Pulse Pulse Resp BP BP Pulse Ox 01/06/21 08:00 72 01/06/21 07:39 36.8 C 65 18 125/76 95 01/06/21 03:53 36.5 C 64 20 126/51 L 93 01/06/21 00:45 01/05/21 23:39 36.9 C 67 20 121/70 94 Pulse Ox 01/06/21 08:00 01/06/21 07:39 01/06/21 03:53 01/06/21 00:45 97 01/05/21 23:39 Laboratory Results Laboratory Results - last 24 hr 01/06/21 05:37 Sodium 141 Potassium 3.8 Chloride 110 H Carbon Dioxide 29 Anion Gap 2.0 L BUN 8 Creatinine 0.67 Est Cr Clr Drug Dosing 109.6 Est GFR ( Amer) 111.5 Est GFR (Non-Af Amer) 96.2 BUN/Creatinine Ratio 11.2 Glucose 89 Calcium 8.9
--- NOTE | 2021-01-06 19:11 | Discharge Summary ---
Date of Service January 06, 2021 Admission HPI Per Admitting Provider CHIEF COMPLAINT: Chest pain on exertion, shortness of breath on exertion, and edema in lower extremities. HISTORY OF PRESENT ILLNESS: This is a 60-year-old female with past medical history significant for intermittent asthma, obesity, hot flashes due to menopause. The patient recently had nerve ablation of the left lower extremity. The patient states in April of 2019, she had a left total knee arthroplasty. Since then, she is having a lot of pain in left knee and recently in [place] on 01/01/2021 she had ablation of the nerves that improved her pain, but she still has some pain in the calf.Yesterday she noticed swelling in the legs and also she has some shortness of breath with exertion and some chest tightness. Chest tightness and Sob were more with exertion and at rest was better. That is the reason she came here and she had lower extremity Doppler and CTA of the chest, which were unremarkable. She has significant family history of heart disease. Maternal grandfather had CT at the age of 50. Currently resting comfortably and hemodynamically stable. She has some headache with nitro. Nitro did not relieve her chest tightness. She has no blurred visions,no double visions, no earache, no runny nose, no sore throat. Occasionally she has dry cough going on for the last more than a year. Denies any fever or chills. Appetite is okay. No dysphagia. Was nauseous. No abdominal pain, normal bowel and bladder movements. Denies any blood in the stools or black stools. No hematuria. Currently resting comfortably and hemodynamically stable. ALLERGIES: ALLERGIES TO ADHESIVE TAPE, CAT DANDER, CHLORHEXIDINE, CODEINE, LATEX, PERCOCET, POLLEN, TOMATO. PAST MEDICAL HISTORY: As mentioned above. PAST SURGICAL HISTORY: Left total knee arthroplasty; biopsy of left breast lesi on; colonoscopy; dental surgery; left great toe bone spur removal; gastric band placement, laparoscopic; left ACL repair; left revision of the knee; partial hysterectomy for cervical dysplasia; bilateral breast biopsy for fibrocystic disease. MEDICATIONS: Currently the patient is on amlodipine 5 mg p.o. daily, gabapentin 300 mg p.o. daily, albuterol p.r.n. FAMILY HISTORY: Significant for mother has Crohn's disease, melanoma; father has prostate cancer, parkinsonism, abdominal and femoral artery aneurysm, melanoma, hypertension, diabetes; sister has Crohn's disease; sister has melanoma; paternal grandmother has uterine cancer; maternal grandfather had CT at age of 50; paternal grandfather had colon cancer at age of 70. SOCIAL HISTORY: . Former smoker, quit in 1997. Alcohol, drinks one to two every 2-3 months. No drug use. REVIEW OF SYSTEMS: As per HPI. Rest of the review of systems is negative. Admission Exam Per Admitting Provider GENERAL: The patient is of moderate build, not in acute distress. VITAL SIGNS: Temperature 36.6, pulse 73, respiratory rate 19, blood pressure 149/92, oxygen 95% on room air. HEENT: Pupils equal, round and reactive to light. Oral mucosa moist. NECK: No JVD. No carotid bruits. CARDIOVASCULAR: S1 and S2 heard. Regular rate and rhythm. No murmur, no gallop. RESPIRATORY SYSTEM: Normal AP diameter. No accessory muscle use. No wheezing, no crackles. ABDOMEN: Soft, bowel sounds are present, nontender, no distention. CENTRAL NERVOUS SYSTEM: Cranial nerves II through XII are grossly intact, nonfocal. EXTREMITIES: Trace pedal edema, slight erythematous changes seen in the left ankle region. Principal Diagnosis Chest Pain R/O ACS BLE Swelling Discharge Exam GENERAL: Alert and oriented x3. NAD, on RA. HEENT: No pallor, no icterus. Pupils equal, round and reactive to light. Oral mucosa moist. NECK: No JVD, no neck masses. HEART: S1 and S2 heard. Regular rate and rhythm. No murmur, no gallop. RESPIRATORY SYSTEM: Normal AP diameter. No accessory muscle use. No wheezing, no crackles. ABDOMEN: Soft, bowel sounds present, nontender, no distention. CENTRAL NERVOUS SYSTEM: Alert and oriented x3. No facial droop. Speech is c lear. Obeys simple commands. Moves extremities. EXTREMITIES: No edema, no erythema seen. Discharge Data Allergies Allergy/AdvReac Type Severity Reaction Status Date / Time chlorhexidine Allergy Unknown Verified 01/05/21 03:03 latex Allergy Unknown Verified 01/05/21 03:03 nickel Allergy Unknown Verified 01/05/21 03:03 oxycodone Allergy (PERCOCET Verified 01/05/21 03:06 BUT NOT OXY OR APAP; PER PATIENT)-UNKNOWN RXN tomato Allergy Unknown Verified 01/05/21 03:03 Consultations 01/04/21 21:01 ED Decision to Admit Stat 01/05/21 08:00 Consult Cardiology Routine Procedures Performed Operation Date: 01/05/21 11:00 Actual Procedures s Cineradiography w/Routine Exam - Gilberto Dunbar MD p Cath, Left with Cors and Vent - Gilberto Dunbar MD Ordered Studies 01/04/21 16:39 CT angio chest PE protocol Stat US venous doppler LE LT Stat 01/05/21 11:26 CL Cath Imgs for PACS use only Routine Hospital Course (1) Chest pain, non-cardiac: 60 yo F with strong family h/o Cardiac disease and personal h/o HTN, dyslipidemia presented 01/05 with chest pain at rest. She was evaluated by cardiology with ECHO and cardiac cath. ECHO showed EF of 60-65% and Cardiac cath was negative for occlusive disease. Cardiology adjusted her meds and advised outpatient evaluation for starting her on low dose aspirin when her GI issues resolves. Her amlodipine was replaced with lisinopril for concerns of b/l leg swelling and patient reported improvement in her leg swelling. Today she denied any chest pain, palpitations, head ache, dizziness, acute changes in bowel or bladder habit. She states that she had esophageal banding done 20 years ago for weight loss. She was managed in the floor for: 1. Non cardiac chest pain 2. B/l leg swelling 3. HTN 4. Dyslipidemia She was provided following instructions: To be started on aspirin per Cardiology recommendation as an outpatient after her GI complaints resolve. Amlodipine stopped for concern of chronic lower extremity edema, and lisinopril is started. Rosuvastatin started. follow up with the primary care within a weeks' time. Can reestablish with cardiology on an as-needed basis. Total Time Total Time Spent Total Time Spent (In Minutes): 45 Discharge Plan Discharge Items Patient Disposition: Home - Self-Care Reason For Visit: sob,swelling lower extremity Discharge Diagnosis: Chest pain r/o ACS; BLE swelling. Activity: Resume your previous activity Non-emergency contact: Primary Care Provider Call non-emergency contact if: you have any medication questions Follow-up/Referrals: Basia Brown MD [Primary Care Provider] - 01/12/21 10:20 am (Date & Time 01/12/2021 10:20 AM Provider Basia Perez MD Department General Internal Medicine [facility] ) Diet: Heart Healthy and Low Fat Addtl Attending Provider Instructions: To be started on aspirin per Cardiology recommendation as an outpatient after her GI complaints resolve. Amlodipine stopped for concern of chronic lower extremity edema, and lisinopril is started. Rosuvastatin started. follow up with the primary care within a weeks' time. Pending Studies at Discharge: No Stand-Alone Forms: My [facility], Smoking Cessation Medications and DC Order Prescriptions: New lisinopril [Zestril] 5 mg Tablet 5 mg PO QAM 30 Days Qty: 30 RF: 0 metoprolol tartrate 25 mg Tablet 12.5 mg PO BID 30 Days Qty: 30 RF: 0 rosuvastatin 10 mg tablet 10 mg PO DAILY 30 Days Qty: 30 RF: 0 Continued gabapentin 300 mg capsule 300 mg PO TID RF: 0 Discontinued amlodipine 5 mg tablet 5 mg PO DAILY RF: 0 Discharge Orders: Discharge Order (Routine); Ordered 01/06/21 Ordered By: Xiao Lees Admission Data Admit Date/Time: 01/05/21 15:28 Attending Provider: Xiao Lees Admit Provider: Fernando Campbell Primary Care Provider: Basia Brown Other Providers: Fernando Campbell ; Axel Menjivar ; Mario Lara ; Gilberto Dunbar ; Omari Lacey ; FredoAmbrocio bundy ; Douglas Rivas ; Mirta [place] ; Sandra Webber ; Magali Barber ; Abbe Sequeira Other Interventions: Discharge Summary Assessment (RN) Last Done: 01/06/21 14:34
== END 2021-01-06 15:16 | disposition home or self-care (01) | DRG 287 ==
LOC: 2W 15:04 → ED 15:04 → 2W 23:49 → 2S 01-05 06:18 → SUATTDRO 01-05 15:28

== ENCOUNTER 2021-08-06 13:30 | Inpatient (IN) ==
--- NOTE | 2021-08-06 14:49 | XRay Report ---
XR chest 1V portable CLINICAL HISTORY: Shortness of breath. COMPARISON STUDY: Chest CT January 04, 2021. FINDINGS: Lung volumes are normal. Lungs are clear. There is no pneumothorax or pleural effusion. Mil d cardiomegaly is unchanged. Mediastinal contours are normal. There is no evidence for pulmonary maureen a. IMPRESSION: No acute cardiopulmonary findings. No change in appearance of the chest. ACT 112: Negative or not required by law. Electronically signed by: Bret Santos M.D. 08/06/2021 2:47 PM
[2021-08-06 15:02] LABS: Basophils # (auto) 0.03 K/uL (0-0.2); Basophils % (auto) 0.7 %; Eosinophils # (auto) 0.12 K/uL (0-0.5); Eosinophils % (auto) 2.7 %; Lymphocytes # (auto) 0.68 K/uL (1.2-3.4); Lymphocytes % (auto) 15.3 %; Mean Corpuscular Hemoglobin 31.2 pg (25-34); Mean Corpuscular Hgb Conc 33.3 g/dL (32-36); Mean Corpuscular Volume 93.5 fL (80-100); Mean Platelet Volume 10.8 fL (7.4-10.4); Monocytes # (auto) 0.84 K/uL (0.11-0.59); Neutrophils # (auto) 2.76 K/uL (1.4-6.5); Neutrophils % (auto) 62.3 %; Platelet Count 229 K/uL (130-400); RDW Coefficient of Variation 13.3 % (11.5-14.5); RDW Standard Deviation 45.3 fL (36.4-46.3); Red Blood Count 4.49 M/uL (4.2-5.4); White Blood Count 4.43 K/uL (4.8-10.8)
--- NOTE | 2021-08-06 15:10 | Emergency Department Note ---
History of Present Illness General Chief complaint: Respiratory Problems Stated complaint: FEVER, SOB, RESPIRATORY PROBLEM Time Seen by Provider: 08/06/21 15:00 History of Present Illness Maximum Pain Intensity: 0 This is a 60-year-old female that presents to the emergency department via private vehicle with complaints of "fever, shortness of breath, respiratory problems". Symptoms began Monday. Patient notes 2 at home Covid tests which have been negative. Ibuprofen dose last of which was at noon. At home fevers 103 F. Patient notes that since Monday her symptoms have included shortness of breath, cough, body aches, chest pain/pressure, fatigue, lack of appetite, nausea, diarrhea. Patient has completed her COVID-19 vaccination series to include also booster. She also has received her flu vaccine. Home Medications Medication Instructions Recorded Confirmed Type gabapentin 300 mg capsule 300 mg PO TID 01/04/21 08/06/21 History acetaminophen 500 mg tablet 1,000 mg PO Q6H PRN 08/06/21 08/06/21 History (Tylenol Extra Strength) fluticasone 250 mcg-salmeterol 50 1 inh INHALATION BID 08/06/21 08/06/21 History mcg/dose blistr powdr for inhalation (Advair Diskus) fluticasone propionate 50 2 spray INTRANASAL BID 08/06/21 08/06/21 History mcg/actuation nasal spray,suspension ibuprofen 200 mg tablet 400 mg PO Q6H PRN 08/06/21 08/06/21 History lisinopril 5 mg tablet 5 mg PO DAILY 08/06/21 08/06/21 History metoprolol succinate 25 mg 25 mg PO DAILY 08/06/21 08/06/21 History tablet,extended release 24 hr omeprazole 20 mg capsule,delayed 20 mg PO DAILY 08/06/21 08/06/21 History release oxybutynin chloride 5 mg 5 mg PO DAILY 08/06/21 08/06/21 History tablet,extended release 24 hr rosuvastatin 40 mg tablet 40 mg PO DAILY 08/06/21 08/06/21 History Allergies Allergy/AdvReac Type Severity Reaction Status Date / Time chlorhexidine Allergy Unknown Verified 08/06/21 16:52 latex Allergy Unknown Verified 08/06/21 16:52 nickel Allergy Unknown Verified 08/06/21 16:52 oxycodone Allergy (PERCOCET Verified 08/06/21 16:52 BUT NOT OXY OR APAP; PER PATIENT)-UNKNOWN RXN tomato Allergy Unknown Verified 08/06/21 16:52 Past Med/Surg History Medical History Chest pain at rest Dyslipidemia Family history of ischemic heart disease H/O: HTN (hypertension) HTN (hypertension) Surgical History History of knee replacement Social History Smoking Status: Never smoker Second Hand Exposure: No; Hx Alcohol Use: Yes Alcohol type: beer Hx Substance Use: No Preferred Language: Georgian Communication Ability: Effective Animal Science Professor Required: No Beliefs That Will Affect Care: None marital status: Unknown Current Living Situation: Alone Current Living Situation Comment: at home, independently, with a dog. 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 Feels Safe at Home: Yes Assistive Devices: Glasses Review of Systems A total of 10 systems reviewed and were otherwise negative Physical Exam Vital Signs Vital Signs - 24 hr 08/06/21 13:33 08/06/21 13:37 08/06/21 15:01 Temperature 37.2 C Temperature Source Temporal Artery Scan Pulse Rate 103 H Pulse Rate [Apical] 93 H Respiratory Rate 18 16 Respiratory Effort / Characteristics Non-Labored Respiratory Depth Normal Blood Pressure 162/72 H Blood Pressure [Left Arm] 157/90 H Blood Pressure Mean 102 Blood Pressure Mean [Left Arm] 112 Pulse Oximetry 95 93 95 Oxygen Delivery Method Room Air Room Air Room Air Sepsis Recent Fever Within 48 Hours No Sepsis New/Unexplained Change in Mental Status No Sepsis Action Taken by Nursing No Action Required 08/06/21 16:41 08/06/21 17:53 Temperature Temperature Source Pulse Rate Pulse Rate [Apical] 87 88 Respiratory Rate 16 16 Respiratory Effort / Characteristics Non-Labored Spontaneous Respiratory Depth Blood Pressure Blood Pressure [Left Arm] 157/90 H 182/110 H Blood Pressure Mean Blood Pressure Mean [Left Arm] 112 134 Pulse Oximetry 94 92 Oxygen Delivery Method Room Air Sepsis Recent Fever Within 48 Hours Sepsis New/Unexplained Change in Mental Status Sepsis Action Taken by Nursing VITAL SIGNS - Vital signs and nursing notes were reviewed. Hypertensive, mildly tachycardic, otherwise stable. GENERAL - 60-year-old female appearing her stated age who is in no acute distress. Communicates well with provider and answers questions appropriately. SKIN - Without rashes. HEAD - NC/AT. EYES - Sclera anicteric. EARS - No deformities of external structures noted on gross examination bilaterally. NOSE - Midline and without cyanosis. No epistaxis or purulent drainage noted. MOUTH/OROPHARYNX - Without perioral cyanosis. NECK - Neck with FROM. No nuchal rigidity. LUNGS - Chest wall symmetric without accessory muscle use, intercostals retractions, or central cyanosis. Normal vesicular breath sounds CTA B/L. No w heezes, rales, or rhonchi appreciated. CARDIAC - RRR with S1/S2. No murmur, rubs, or gallops appreciated. EXTREMITIES - No clubbing or peripheral cyanosis. +5/5 strength noted in UE/LE bilaterally. NEUROLOGIC - Cranial nerves II through XII grossly intact. PSYCH - A&Ox3 and cooperates fully with examiner. Pt is very pleasant and interacts well with examiner. Course Administered Medications Sodium Chloride (Nss 1000ml) 1,000 mls @ 125 mls/hr IV .Q8H JOSIANE Stop: 09/05/21 15:29 Last Admin: 08/06/21 16:34 Dose: 125 mls/hr Documented by: [id number] Discontinued Medications Ioversol (Optiray 320 125ml) 119 ml IV ONCE ONE Stop: 08/06/21 17:27 Last Admin: 08/06/21 17:27 Dose: 119 ml Documented by: [id number] Morphine Sulfate (Morphine Sulfate 4 Mg/Ml 1 Ml Carp\\Vial) 4 mg IV NOW STA Stop: 08/06/21 16:23 Last Admin: 08/06/21 16:34 Dose: 4 mg Documented by: [id number] Ondansetron HCl (Ondansetron Inj 2 Mg/Ml 2 Ml Vial) 4 mg IV NOW STA Stop: 08/06/21 16:23 Last Admin: 08/06/21 16:34 Dose: 4 mg Documented by: [id number] Medical Decision Making Laboratory Data Result diagrams: 08/06/21 14:55 08/06/21 14:55 Lab Results 08/06/21 08/06/21 08/06/21 Range/Units 14:55 14:55 14:55 WBC 4.43 L (4.8-10.8) K/uL RBC 4.49 (4.2-5.4) M/uL Hgb 14.0 (12.0-16.0) g/dL Hct 42.0 (37-47) % MCV 93.5 (80-100) fL MCH 31.2 (25-34) pg MCHC 33.3 (32-36) g/dL RDW Std Deviation 45.3 (36.4-46.3) fL RDW Coeff of Mil 13.3 (11.5-14.5) % Plt Count 229 (130-400) K/uL MPV 10.8 H (7.4-10.4) fL Immature Gran % (Auto) 0.0 % Neut % (Auto) 62.3 % Lymph % (Auto) 15.3 % Harris % (Auto) 19.0 % Eos % (Auto) 2.7 % Baso % (Auto) 0.7 % Neut # (Auto) 2.76 (1.4-6.5) K/uL Lymph # (Auto) 0.68 L (1.2-3.4) K/uL Harris # (Auto) 0.84 H (0.11-0.59) K/uL Eos # (Auto) 0.12 (0-0.5) K/uL Baso # (Auto) 0.03 (0-0.2) K/uL Immature Gran # (Auto) 0.00 (0.00-0.02) K/uL PT 9.5 (9.0-12.0) Seconds INR 0.9 (0.9-1.1) APTT 26.3 (21.0-31.0) Seconds PTT Ratio 1.0 D-Dimer 1080 H* (0-500) ug/L FEU Sodium 137 (136-145) mmol/L Potassium 4.3 (3.5-5.1) mmol/L Chloride 105 (98-107) mmol/L Carbon Dioxide 24 (21-32) mmol/L Anion Gap 8 (3-11) BUN 7 (6-23) mg/dl Creatinine 0.77 (0.6-1.2) mg/dl Est Cr Clr Drug Dosing 93.2 ml/min Est GFR ( Amer) 98.0 ml/min Est GFR (Non-Af Amer) 84.5 ml/min BUN/Creatinine Ratio 9.1 L (10-20) Glucose 90 (70-99(Fasting)) mg/dl Calcium 9.2 (8.5-10.1) mg/dl Magnesium 1.9 (1.7-2.4) mg/dl Total Bilirubin 0.3 (0.2-1.0) mg/dl AST 28 (13-39) U/L ALT 18 (7-52) U/L Alkaline Phosphatase 87 (34-104) U/L Troponin I < 0.03 (0-0.04) ng/ml Total Protein 7.1 (6.0-8.3) gm/dl Albumin 4.3 (3.4-5.0) gm/dl Globulin 2.8 (2.5-4.0) gm/dl Albumin/Globulin Ratio 1.5 (0.9-2) Procalcitonin (0-0.5) ng/ml Urine Color Urine Appearance (Clear) Urine pH (4.5-7.5) Ur Specific Ozan (1.000-1.030) Urine Protein (Negative) Urine Glucose (UA) (Negative) Urine Ketones (Negative) Urine Blood (Negative) Urine Nitrite (Negative) Urine Bilirubin (Negative) Urine Urobilinogen (Negative) Ur Leukocyte Esterase (Negative) SARS-CoV-2 (PCR) (Negative) Influenza Type A (PCR) (Neg) Influenza Type B (PCR) (Neg) RSV (RT-PCR) (Neg) 08/06/21 08/06/21 08/06/21 Range/Units 14:55 15:00 18:01 WBC (4.8-10.8) K/uL RBC (4.2-5.4) M/uL Hgb (12.0-16.0) g/dL Hct (37-47) % MCV (80-100) fL MCH (25-34) pg MCHC (32-36) g/dL RDW Std Deviation (36.4-46.3) fL RDW Coeff of Mil (11.5-14.5) % Plt Count (130-400) K/uL MPV (7.4-10.4) fL Immature Gran % (Auto) % Neut % (Auto) % Lymph % (Auto) % Harris % (Auto) % Eos % (Auto) % Baso % (Auto) % Neut # (Auto) (1.4-6.5) K/uL Lymph # (Auto) (1.2-3.4) K/uL Harris # (Auto) (0.11-0.59) K/uL Eos # (Auto) (0-0.5) K/uL Baso # (Auto) (0-0.2) K/uL Immature Gran # (Auto) (0.00-0.02) K/uL PT (9.0-12.0) Seconds INR (0.9-1.1) APTT (21.0-31.0) Seconds PTT Ratio D-Dimer (0-500) ug/L FEU Sodium (136-145) mmol/L Potassium (3.5-5.1) mmol/L Chloride (98-107) mmol/L Carbon Dioxide (21-32) mmol/L Anion Gap (3-11) BUN (6-23) mg/dl Creatinine (0.6-1.2) mg/dl Est Cr Clr Drug Dosing ml/min Est GFR ( Amer) ml/min Est GFR (Non-Af Amer) ml/min BUN/Creatinine Ratio (10-20) Glucose (70-99(Fasting)) mg/dl Calcium (8.5-10.1) mg/dl Magnesium (1.7-2.4) mg/dl Total Bilirubin (0.2-1.0) mg/dl AST (13-39) U/L ALT (7-52) U/L Alkaline Phosphatase (34-104) U/L Troponin I (0-0.04) ng/ml Total Protein (6.0-8.3) gm/dl Albumin (3.4-5.0) gm/dl Globulin (2.5-4.0) gm/dl Albumin/Globulin Ratio (0.9-2) Procalcitonin < 0.05 (0-0.5) ng/ml Urine Color Yellow Urine Appearance Clear (Clear) Urine pH 6.5 (4.5-7.5) Ur Specific Ozan > 1.045 H (1.000-1.030) Urine Protein Negative (Negative) Urine Glucose (UA) Negative (Negative) Urine Ketones Trace H (Negative) Urine Blood Negative (Negative) Urine Nitrite Negative (Negative) Urine Bilirubin Negative (Negative) Urine Urobilinogen Negative (Negative) Ur Leukocyte Esterase Negative (Negative) SARS-CoV-2 (PCR) NEGATIVE (Negative) Influenza Type A (PCR) Negative (Neg) Influenza Type B (PCR) Negative (Neg) RSV (RT-PCR) Negative (Neg) Imaging Data Radiologist's Impression: Chest X-Ray 08/06/21 13:37 XR chest 1V portable CLINICAL HISTORY: Shortness of breath. COMPARISON STUDY: Chest CT January 04, 2021. FINDINGS: Lung volumes are normal. Lungs are clear. There is no pneumothorax or pleural effusion. Mild cardiomegaly is unchanged. Mediastinal contours are normal. There is no evidence for pulmonary edema. IMPRESSION: No acute cardiopulmonary findings. No change in appearance of the chest. ACT 112: Negative or not required by law. Electronically signed by: Bret Santos M.D. 08/06/2021 2:47 PM Chest CTA 08/06/21 15:24 CT ANGIOGRAPHY OF THE CHEST, PULMONARY EMBOLUS PROTOCOL CLINICAL HISTORY: dyspnea, fever, cough, Elevated D dimer COMPARISON STUDY: Chest CT January 04, 2021. Chest radiograph performed earlier today. TECHNIQUE: Following IV administration of 119 mL of Optiray, helical axial images of the chest were obtained utilizing the pulmonary embolus protocol. Maximal intensity projections and sagittal and coronal reformats were viewed on an independent 3D workstation. IV contrast was administered without complication. Automated exposure control was utilized for the study. A dose lowering technique was utilized adhering to the principles of ALARA. CT DOSE: 580.84 mGycm FINDINGS: No pulmonary emboli are identified. There is no thoracic aortic dissection. Mild cardiomegaly is noted. No enlarged thoracic lymph nodes are present. Gastric lap band is in place. A small hiatal hernia is unchanged. No pneumothorax or pleural effusion is noted. Note is made of a 3 cm airspace opacity within the left lower lobe. This is new since prior CT. 4 mm solid noncalcified right lower lobe nodule on image 109 of 283 is unchanged. Central airways are patent. IMPRESSION: 1. No pulmonary emboli identified. 2. 3 cm airspace opacity within the left lower lobe suggestive of pneumonia. 3. No change in a 4 mm right lower lobe pulmonary nodule. This is likely benign. Follow-up chest CT in 6 months to ensure stability is recommended. ACT 112: Negative or not required by law. Electronically signed by: Bret Santos M.D. 08/06/2021 5:44 PM MDM Narrative Patient was seen and evaluated as above in room C05. Review was performed of nursing notes and vital signs. I did review pertinent previous visits and patient history. After obtaining a thorough history and physical examination the above work up was performed. Patient presents to us today with fever, dyspnea, cough. She is non toxic on exam. Vital signs overall stable. Options of care were discussed with the patient. Patient presents during a period of high volume and acute during the COVID-19 pandemic. Given the period of high volume and acuity nursing protocols were already placed to include chest x-ray, EKG, laboratory studies. I did review these. Some the labs had already resulted at the time of signing up and seeing the patient. Chest x-ray had a lready resulted and was negative for acute process. D-dimer resulted as elevated. CT of the chest is felt to be warranted and is felt that the benefit outweighs the risk. Results of the CT of the chest as above. The patient has not had much to eat or drink as of recent she notes. Patient is mildly tachycardic. There is a potential for some mild dehydration. I did order some maintenance fluids with the patient but held off on bolus prior to completing the work-up. CTA results as above. No PE. There is pneumonia noted. This does clinically correlate. I did discuss options regarding inpatient versus outpatient management. The patient has not felt well at home. She lives alone. She also has EKG findings today which do appear to be new compared to previous. Her EKG today reveals normal sinus rhythm at a rate of 90 bpm. QTc 486. QRS 82. The patient does have T wave changes today which do appear to be new compared to EKG of December 29, 2020. Troponin x1 -. Mild leukopenia 4.43. No anemia. No emergent metabolic disturbance. Pro-Dilip normal. Urinalysis does not suggest infection. Covid testing negative. At this time I do believe that further evaluation and management inpatient setting is warranted. I discussed options in regard to antibiotic management with the hospitalist and they will place orders for these. Please refer to further documentation regarding her stay. GCS: 15 In the evaluation and treatment of this patient the following differential diagnoses were entertained: NC, PE, pericarditis, costochondritis, pneumonia, dissection, COVID-19, sepsis, among others. Impression & Plan Pneumonia, Cough, Chest pain, Abnormal EKG, Nausea, Generalized body aches Discharge Plan Visit Data Chief Complaint: Respiratory Problems Stated Complaint: FEVER, SOB, RESPIRATORY PROBLEM ED Provider: Douglas Patino ED Midlevel Provider: Zac Craft Discharge Problem: Pneumonia, Cough, Chest pain, Abnormal EKG, Nausea, Generalized body aches Patient Disposition: Admitted As Inpatient Condition: Good Forms Stand Alone Forms: [facility] Prescriptions Prescriptions: No Action gabapentin 300 mg capsule 300 mg PO TID RF: 0 acetaminophen [Tylenol Extra Strength] 500 mg Tablet 1,000 mg PO Q6H PRN (Reason: Fever Or Pain) RF: 0 ibuprofen 200 mg Tablet 400 mg PO Q6H PRN (Reason: Fever Or Pain) RF: 0 oxybutynin chloride 5 mg tablet extended release 24hr 5 mg PO DAILY RF: 0 omeprazole 20 mg capsule,delayed release(DR/EC) 20 mg PO DAILY RF: 0 lisinopril 5 mg tablet 5 mg PO DAILY RF: 0 metoprolol succinate 25 mg tablet extended release 24 hr 25 mg PO DAILY RF: 0 fluticasone propionate 50 mcg/actuation spray,suspension 2 spray INTRANASAL BID RF: 0 rosuvastatin 40 mg tablet 40 mg PO DAILY RF: 0 fluticasone propion-salmeterol [Advair Diskus] 250-50 mcg/dose Blister With Device 1 inh INHALATION BID RF: 0 Referrals Referrals: Basia Brown MD [Primary Care Provider] -
[2021-08-06 15:17] LABS: INR 0.9 (0.9-1.1); Partial Thromboplastin Time 26.3 Seconds (21.0-31.0); Prothrombin Time 9.5 Seconds (9.0-12.0)
[2021-08-06 15:19] LABS: D Dimer 1080 ug/L FEU (0-500)
[2021-08-06 15:28] LABS: Troponin I < 0.03 ng/ml (0-0.04)
[2021-08-06] MEDS ORDERED: SODIUM CHLORIDE 0.9% 1000ML 1,000 ML IV SCH ×2 (15:30→21:34)
[2021-08-06 15:57] LABS: Aspartate Aminotransferase 28 U/L (13-39); Potassium 4.3 mmol/L (3.5-5.1)
[2021-08-06 16:00] LABS: Influenza A virus by PCR Negative (Neg); Influenza B virus by PCR Negative (Neg); RSV by PCR Negative (Neg); SARS CoV2 RNA(COVID-19) InHosp NEGATIVE (Negative)
[2021-08-06 16:09] LABS: Alanine Aminotransferase 18 U/L (7-52); Albumin Globulin Ratio 1.5 (0.9-2); Albumin Level 4.3 gm/dl (3.4-5.0); Alkaline Phosphatase 87 U/L (34-104); Anion Gap 8 (3-11); BUN Creatinine Ratio 9.1 (10-20); Bilirubin,Total 0.3 mg/dl (0.2-1.0); Blood Urea Nitrogen 7 mg/dl (6-23); Calcium 9.2 mg/dl (8.5-10.1); Carbon Dioxide 24 mmol/L (21-32); Chloride 105 mmol/L (98-107); Creatinine Clr Calc Pharmacy 93.2 ml/min; Est GFR (Non-African American) 84.5 ml/min; Globulin 2.8 gm/dl (2.5-4.0); Glucose 90 mg/dl (70-99(Fasting)); Magnesium 1.9 mg/dl (1.7-2.4); Sodium 137 mmol/L (136-145); Total Protein 7.1 gm/dl (6.0-8.3)
[2021-08-06] MEDS ORDERED: MoRPHine SULFATE 4 MG/ML 1 ML CARP\\VIAL IV STA (16:22)
[2021-08-06] MEDS ORDERED: ONDANSETRON INJ 2 MG/ML 2 ML VIAL IV STA (16:22)
[2021-08-06] MEDS ORDERED: OPTIRAY 320 125ml IV ONE (17:26)
--- NOTE | 2021-08-06 17:29 | Electrocardiogram Report ---
Test Reason : Blood Pressure : / mmHG Vent. Rate : 090 BPM Atrial Rate : 090 BPM P-R Int : 158 ms QRS Dur : 082 ms QT Int : 398 ms P-R-T Axes : 052 -38 -40 degrees QTc Int : 486 ms Normal sinus rhythm Left axis deviation T wave abnormality, consider inferior ischemia Abnormal ECG When compared with ECG of 06-JAN-2021 07:34, ST now depressed in Inferior leads T wave inversion now evident in Inferior leads Confirmed by Lei Blackwell ([id number]) on 08/06/2021 5:28:36 PM Referred By: Confirmed By:Willam Blackwell
--- NOTE | 2021-08-06 17:46 | CT Scan Report ---
CT ANGIOGRAPHY OF THE CHEST, PULMONARY EMBOLUS PROTOCOL CLINICAL HISTORY: dyspnea, fever, cough, Elevated D dimer COMPARISON STUDY: Chest CT January 04, 2021. Chest radiograph performed earlier today. TECHNIQUE: Following IV administration of 119 mL of Optiray, helical axial images of the chest were o btained utilizing the pulmonary embolus protocol. Maximal intensity projections and sagittal and cor onal reformats were viewed on an independent 3D workstation. IV contrast was administered without co mplication. Automated exposure control was utilized for the study. A dose lowering technique was ut ilized adhering to the principles of ALARA. CT DOSE: 580.84 mGycm FINDINGS: No pulmonary emboli are identified. There is no thoracic aortic dissection. Mild cardiomeg austyn is noted. No enlarged thoracic lymph nodes are present. Gastric lap band is in place. A small hia malaika hernia is unchanged. No pneumothorax or pleural effusion is noted. Note is made of a 3 cm airspac e opacity within the left lower lobe. This is new since prior CT. 4 mm solid noncalcified right lower lobe nodule on image 109 of 283 is unchanged. Central airways are patent. IMPRESSION: 1. No pulmonary emboli identified. 2. 3 cm airspace opacity within the left lower lobe suggestive of pneumonia. 3. No change in a 4 mm right lower lobe pulmonary nodule. This is likely benign. Follow-up chest CT i n 6 months to ensure stability is recommended. ACT 112: Negative or not required by law. Electronically signed by: Bret Santos M.D. 08/06/2021 5:44 PM
[2021-08-06 18:13] LABS: Appearance Urine Clear (Clear); Bilirubin Urine Negative (Negative); Blood Urine Negative (Negative); Color Urine Yellow; Glucose Urine UA Negative (Negative); Ketones Urine Trace (Negative); Leukocyte Esterase Urine Negative (Negative); Nitrite Urine Negative (Negative); Protein Urine Negative (Negative); Specific Gravity Urine > 1.045 (1.000-1.030); Urobilinogen Urine Negative (Negative); pH Urine 6.5 (4.5-7.5)
--- NOTE | 2021-08-06 20:05 | History and Physical Report ---
DATE OF ADMISSION: 08/06/2021. CHIEF COMPLAINT: Cough, fever and chest pain. HISTORY OF PRESENT ILLNESS: This is a 60-year-old female with past medical history significant for obstructive sleep apnea, chronic cough, mild asthma, allergic rhinitis, history of hot flashes, history of GERD, who presents with cough and fever and chest pain. The patient says since last Monday, she is having lot of dry cough and she has high fevers and generalized weakness. Today she has developed chest pain, moderate in severity in the middle of the chest, no radiation and she tested COVID at home and it was negative. She had a telemedicine with her family doctor. She has been vaccinated for COVID and also boosted and also it looks like she had tested for COVID antibodies with good levels. Her family doctor advised to come to the ER. In the ER also, COVID PCR test is negative and influenza A and B negative and RSV negative. CTA chest was done, which shows 3 cm airspace opacity in the left lower lobe suggestive of pneumonia. She has some EKG changes. Troponin is negative. Procalcitonin is negative. She has leukopenia and her D-dimer is elevated at 1080. Currently complains of some headache, no blurred visions. Has runny nose, some ear pressure, sore throat, saturating okay on room air. Has nausea, no vomiting, no abdominal pain, no blood or black stools. Normal bladder movements. No swelling in the legs. She says her chest pain is similar to her admission she had in December last year , at that time a cardiac catheterization was done, which showed mild CAD. ALLERGIES: CHLORHEXIDINE, LATEX, NICKEL, OXYCODONE, TOMATO. PAST MEDICAL HISTORY: As mentioned above. PAST SURGICAL HISTORY: Left knee arthroplasty, left breast lesion excision, colonoscopy, dental surgery, EGDs, left great toe surgery, gastric band placement, laparoscopic left ACL repair, partial hysterectomy, bilateral ultrasound-guided breast biopsy, benign fibrocystic disease. MEDICATIONS: The patient is on Tylenol Extra Strength 1000 mg p.o. q.6 hours p.r.n., Advair Diskus one inhalation b.i.d., Flonase 2 sprays intranasally b.i.d., gabapentin 300 mg p.o. daily, ibuprofen 400 mg p.o. q.6 hours p.r.n., lisinopril 5 mg p.o. daily, metoprolol succinate 25 mg p.o. daily, omeprazole 25 mg p.o. daily, oxybutynin 5 mg p.o. daily, lovastatin 40 mg p.o. daily. FAMILY HISTORY: Significant for father has asthma, diabetes, hypertension, melanoma, abdominal and femoral artery aneurysm, parkinsonism, prostate cancer; mother has Crohn's disease, heart disease, melanoma; sister has melanoma, eczema, Crohn's disease. SOCIAL HISTORY: . Quit smoking in 1997. Smoked half pack a day for 2 years. Alcohol once every 2-3 months. No drug use. REVIEW OF SYSTEMS: As per HPI. Rest of review of systems is negative. PHYSICAL EXAMINATION: GENERAL: The patient is obese, not in acute distress. VITAL SIGNS: Temperature 37.2, pulse 88, respiratory rate 16, blood pressure 180/110, oxygen 94% on room air. HEENT: Pupils equal, round and reactive to light. Oral mucosa moist. NECK: No JVD, no neck masses. CARDIOVASCULAR: S1 and S2 heard. Regular rate and rhythm. No murmur, no gallop. RESPIRATORY SYSTEM: Normal AP diameter. No accessory muscle use. No wheezing, no crackles. ABDOMEN: Soft, bowel sounds present, nontender, no distention. CENTRAL NERVOUS SYSTEM: Cranial nerves II-XII grossly intact, nonfocal. EXTREMITIES: No edema, no erythema. LABORATORY DATA: WBC 4.4, hemoglobin 14, hematocrit 42, platelets 229. PT 9.5, INR 0.9, APTT 26.3. D-dimer 1080. Sodium 137, potassium 4.3, chloride 105, bicarbonate 24, BUN 7, creatinine 0.7, serum glucose 90, calcium 9.2, magnesium 1.9, total bilirubin 0.3, AST 28, ALT 18, alkaline phosphatase 87. Troponin I less than 0.03. Procalcitonin less than 0.05. Urinalysis negative. SARS-CoV-2 PCR negative. Influenza A and B PCR negative. RSV PCR negative. IMAGING: CT of the chest, no pulmonary emboli identified. A 3 cm airspace opacity within the left lower lobe suggestive of pneumonia. No change in the 4 mm right lower lobe pulmonary nodule; this is likely benign. Followup CT chest in 6 months to ensure stability is recommended. Chest x-ray, no acute findings. EKG: Normal sinus rhythm, left axis deviation, rate of 90, T-wave inversion now evident in inferior leads. ASSESSMENT AND PLAN: This is a 60-year-old female who presents with cough and fever and also chest pain. 1. Possible pneumonia on CTA chest: Empirically started on Rocephin and doxycycline. Follow the response. Monitor in the telemetry floor. 2. Chest pain, EKG changes: Negative troponin. Her cardiac catheterization in 12/2020 showed mild coronary artery disease. We will follow serial enzymes, echocardiogram, and consult cardiology. N.p.o. after midnight. 3. History of asthma: Continue her home inhalers and nebulizers p.r.n. 4. History of hypertension: Continue metoprolol succinate and lisinopril. 5. Hyperlipidemia: Continue statin. 6. History of obstructive sleep apnea: The patient is using oral appliance. We will use oxygen while the patient is in the hospital at nighttime. 7. Deep venous thrombosis prophylaxis: Sequential compression devices. DISPOSITION: Admit to tele floor. Level 1, full code. Expect to discharge home and follow with family doctor. Job ID: [id number] [facility]
[2021-08-06] MEDS ORDERED: FLUTICASONE/SALMETEROL 250/50 (ADVAIR) 14 PUFF/1 INHALER INH SCH (21:34)
[2021-08-06] MEDS ORDERED: NITROGLYCERIN SL 0.4 MG/TAB TAB SL PRN (21:34)
[2021-08-06] MEDS ORDERED: cefTRIAXone SODIUM 1,000 MG in DEXTROSE 5% 50 ML IV SCH (21:34)
[2021-08-06] MEDS ORDERED: ONDANSETRON INJ 2 MG/ML 2 ML VIAL IV PRN (21:34)
[2021-08-06] MEDS: DOXYCYCLINE HYCLATE 100 MG in DEXTROSE 5% 100 ML IV SCH (22:49)
[2021-08-06] MEDS: cefTRIAXone SODIUM 2,000 MG in DEXTROSE 5% 50 ML IV SCH (22:49)
[2021-08-06] MEDS: FLUTICASONE PROPIONATE NA SPR 16 GM BTL SCH (23:17)
[2021-08-06] MEDS: GABAPENTIN 300 MG CAP PO SCH (23:18)
[2021-08-07 03:52] LABS: Basophils # (auto) 0.02 K/uL (0-0.2); Basophils % (auto) 0.5 %; Eosinophils # (auto) 0.04 K/uL (0-0.5); Hematocrit (blood only) 38.6 % (37-47); Lymphocytes # (auto) 0.86 K/uL (1.2-3.4); Lymphocytes % (auto) 21.7 %; Mean Corpuscular Hemoglobin 31.7 pg (25-34); Mean Corpuscular Hgb Conc 33.7 g/dL (32-36); Mean Corpuscular Volume 94.1 fL (80-100); Mean Platelet Volume 10.7 fL (7.4-10.4); Monocytes # (auto) 1.06 K/uL (0.11-0.59); Monocytes % (auto) 26.8 %; Neutrophils # (auto) 1.98 K/uL (1.4-6.5); Platelet Count 206 K/uL (130-400); RDW Coefficient of Variation 13.4 % (11.5-14.5); RDW Standard Deviation 46.4 fL (36.4-46.3); White Blood Count 3.96 K/uL (4.8-10.8)
[2021-08-07 04:13] LABS: BUN Creatinine Ratio 8.2 (10-20); Calcium 8.4 mg/dl (8.5-10.1); Creatinine Clr Calc Pharmacy 99.3 ml/min; Est GFR (African American) 104.5 ml/min; Est GFR (Non-African American) 90.1 ml/min; Magnesium 1.8 mg/dl (1.7-2.4); Potassium 3.9 mmol/L (3.5-5.1)
[2021-08-07] MEDS: ACETAMINOPHEN 325 MG TAB PO PRN ×2 (04:59→19:40)
[2021-08-07] MEDS: LEVALBUTEROL HCL 1.25 MG/3 ML NEB NEB PRN ×3 (05:31→18:06)
[2021-08-07] MEDS: FLUTICASONE PROPIONATE NA SPR 16 GM BTL SCH ×2 (08:20→20:50)
[2021-08-07] MEDS: PANTOprazole 40 MG TAB PO SCH (08:21)
[2021-08-07] MEDS: GABAPENTIN 300 MG CAP PO SCH ×3 (08:21→20:50)
[2021-08-07] MEDS: FLUTICASONE/VILANTEROL 200/25MCG 14 PUFFS/INHALER INH SCH (08:21)
[2021-08-07] MEDS: METOPROLOL SUCC 25MG EXT REL TAB PO SCH (08:22)
[2021-08-07] MEDS: ROSUVASTATIN CALCIUM 20 MG TAB PO SCH (08:22)
[2021-08-07] MEDS: lisinopril 5 MG TAB PO SCH (08:22)
[2021-08-07] MEDS: OXYBUTYNIN CHLORIDE XL 5 MG TABCR PO SCH (08:23)
[2021-08-07] MEDS: DOXYCYCLINE HYCLATE 100 MG in DEXTROSE 5% 100 ML IV SCH ×2 (10:29→21:27)
--- NOTE | 2021-08-07 10:36 | Electrocardiogram Report ---
Test Reason : Blood Pressure : / mmHG Vent. Rate : 075 BPM Atrial Rate : 075 BPM P-R Int : 158 ms QRS Dur : 088 ms QT Int : 382 ms P-R-T Axes : 053 -34 035 degrees QTc Int : 426 ms Normal sinus rhythm Left axis deviation Nonspecific T wave abnormality Abnormal ECG When compared with ECG of 06-AUG-2021 14:46, T wave inversion no longer evident in Inferior leads QT has shortened Confirmed by Quang Betts ([id number]) on 08/07/2021 10:36:35 AM Referred By: REFERRED SELF Confirmed By:Quang Betts
--- NOTE | 2021-08-07 10:55 | Cardiology Consultation ---
Date of Consultation August 07, 2021 Assessment & Plan (1) Chest pain, pleuritic: (2) Pneumonia: (3) Cough: (4) Acute dyspnea: Patient referred for evaluation of noncardiac chest pain in association with acute pneumonia. Exam significant for respiratory wheezes and rhonchi. EKG with mild baseline abnormalities but no acute changes. Troponins negative. Echocardiogram demonstrates preserved LV systolic function without wall motion. Recommendations: Continue usual prehospital medications and treat underlying pneumonia Cardiology will sign off contact with question History of Present Illness Reason for Consultation: Chest tightness, pneumonia Requesting Physician: Dr. Napier Attending Physician: Romeo Napier MD History of Present Illness Patient is a 60-year-old female whose ongoing issues include 1. Hypertension 2. Dyslipidemia 3. Past noncardiac chest pain status post cardiac catheterization with minimal coronary atherosclerosis 4. Asthmatic lung disease 5. Chronic obstructive sleep apnea Patient presents today with worsening cough and febrile illness associated with chest tightness with patient presenting to the emergency room after increasing difficulty with breathing and markedly elevated temperature not responsive to outpatient therapies. Patient is referred for further evaluation of chest tightness complaints patient notes significant cough and chest pain associated with cough. Dyspneic with minimal activity. Patient notes audible wheezing and productive cough EKGs with minor nonspecific ST segment changes and troponin negative. Patient compliant with usual medications. Notes cough and respiratory issues have been ongoing for 4 to 6 days No bleeding difficulties. No melena medication dysuria hematuria. Allergies Allergy/AdvReac Type Severity Reaction Status Date / Time chlorhexidine Allergy Unknown Verified 08/06/21 16:52 latex Allergy Unknown Verified 08/06/21 16:52 nickel Allergy Unknown Verified 08/06/21 16:52 oxycodone Allergy (PERCOCET Verified 08/06/21 16:52 BUT NOT OXY OR APAP; PER PATIENT)-UNKNOWN RXN tomato Allergy Unknown Verified 08/06/21 16:52 Home Medications Medication Instructions Recorded Confirmed Type gabapentin 300 mg capsule 300 mg PO TID 01/04/21 08/06/21 History acetaminophen 500 mg tablet 1,000 mg PO Q6H PRN 08/06/21 08/06/21 History (Tylenol Extra Strength) fluticasone 250 mcg-salmeterol 50 1 inh INHALATION BID 08/06/21 08/06/21 History mcg/dose blistr powdr for inhalation (Advair Diskus) fluticasone propionate 50 2 spray INTRANASAL BID 08/06/21 08/06/21 History mcg/actuation nasal spray,suspension ibuprofen 200 mg tablet 400 mg PO Q6H PRN 08/06/21 08/06/21 History lisinopril 5 mg tablet 5 mg PO DAILY 08/06/21 08/06/21 History metoprolol succinate 25 mg 25 mg PO DAILY 08/06/21 08/06/21 History tablet,extended release 24 hr omeprazole 20 mg capsule,delayed 20 mg PO DAILY 08/06/21 08/06/21 History release oxybutynin chloride 5 mg 5 mg PO DAILY 08/06/21 08/06/21 History tablet,extended release 24 hr rosuvastatin 40 mg tablet 40 mg PO DAILY 08/06/21 08/06/21 History Patient History Medical History Chest pain at rest Dyslipidemia Family history of ischemic heart disease H/O: HTN (hypertension) HTN (hypertension) Surgical History History of knee replacement Social History Smoking Status: Former smoker Cigarettes Per Day: 1/2 pack; Smoking End Date: 1996; Second Hand Exposure: Yes; Do You Dip or Chew Tobacco: No; Tobacco Cessation Education Requested by Patient: No Hx Alcohol Use: Yes (Socially) Alcohol type: beer and hard liquor Hx Substance Use: No Preferred Language: Cameroonian Communication Ability: Effective 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 Review of Systems Review of Systems: All systems reviewed & are unremarkable except as noted in HPI & below Physical Exam Constitutional: + ill appearing Eyes: PERRL, conjunctivae normal, anicteric sclerae ENMT: external ear and nose normal, oropharynx normal Neck: trachea midline, no thyromegaly Respiratory: + audible wheezes Auscultation: + rhonchi (Left greater than right) Cardiovascular: Rate/Rhythm: regular rate and regular rhythm Heart Sounds: normal S1 and normal S2; no gallop and no murmur Palpation: normal PMI Vessels: normal carotid upstroke and radial pulses present; no JVD and no carotid bruit Extremities: no edema Gastrointestinal (Abdomen): normal bowel sounds, soft, nontender, no hepatosplenomegaly Musculoskeletal: no cyanosis or clubbing, extremities motor strength 5/5 Skin: no rashes, warm and dry Neurologic: PERRL, EOMI, accommodation nl, no face palsy, no dysarthria Psychiatric: A+Ox3, euthymic affect Results & Data ([facility]) Vital Signs (Past 12 Hours) Vital Signs Temp Pulse Pulse Resp BP Pulse Ox Pulse Ox 08/07/21 09:30 97 08/07/21 09:27 80 08/07/21 09:21 97 08/07/21 06:49 36.7 C 80 22 117/70 97 08/07/21 05:33 78 22 98 08/07/21 03:46 36.8 C 72 18 115/70 97 08/06/21 23:41 37.1 C 86 18 121/69 92 Laboratory Results Laboratory Results - last 24 hr 08/06/21 08/06/21 08/06/21 14:55 14:55 14:55 WBC 4.43 L RBC 4.49 Hgb 14.0 Hct 42.0 MCV 93.5 MCH 31.2 MCHC 33.3 RDW Std Deviation 45.3 RDW Coeff of Mil 13.3 Plt Count 229 MPV 10.8 H Immature Gran % (Auto) 0.0 Neut % (Auto) 62.3 Lymph % (Auto) 15.3 [place] % (Auto) 19.0 Eos % (Auto) 2.7 Baso % (Auto) 0.7 Neut # (Auto) 2.76 Lymph # (Auto) 0.68 L [place] # (Auto) 0.84 H Eos # (Auto) 0.12 Baso # (Auto) 0.03 Immature Gran # (Auto) 0.00 PT 9.5 INR 0.9 APTT 26.3 PTT Ratio 1.0 D-Dimer 1080 H* Sodium 137 Potassium 4.3 Chloride 105 Carbon Dioxide 24 Anion Gap 8 BUN 7 Creatinine 0.77 Est Cr Clr Drug Dosing 93.2 Est GFR ( Amer) 98.0 Est GFR (Non-Af Amer) 84.5 BUN/Creatinine Ratio 9.1 L Glucose 90 Calcium 9.2 Magnesium 1.9 Total Bilirubin 0.3 AST 28 ALT 18 Alkaline Phosphatase 87 Troponin I < 0.03 Total Protein 7.1 Albumin 4.3 Globulin 2.8 Albumin/Globulin Ratio 1.5 Procalcitonin Urine Color Urine Appearance Urine pH Ur Specific [place] Urine Protein Urine Glucose (UA) Urine Ketones Urine Blood Urine Nitrite Urine Bilirubin Urine Urobilinogen Ur Leukocyte Esterase SARS-CoV-2 (PCR) Influenza Type A (PCR) Influenza Type B (PCR) Urine Legionella Ag RSV (RT-PCR) 08/06/21 08/06/21 08/06/21 14:55 15:00 18:01 WBC RBC Hgb Hct MCV MCH MCHC RDW Std Deviation RDW Coeff of Mil Plt Count MPV Immature Gran % (Auto) Neut % (Auto) Lymph % (Auto) [place] % (Auto) Eos % (Auto) Baso % (Auto) Neut # (Auto) Lymph # (Auto) [place] # (Auto) Eos # (Auto) Baso # (Auto) Immature Gran # (Auto) PT INR APTT PTT Ratio D-Dimer Sodium Potassium Chloride Carbon Dioxide Anion Gap BUN Creatinine Est Cr Clr Drug Dosing Est GFR ( Amer) Est GFR (Non-Af Amer) BUN/Creatinine Ratio Glucose Calcium Magnesium Total Bilirubin AST ALT Alkaline Phosphatase Troponin I Total Protein Albumin Globulin Albumin/Globulin Ratio Procalcitonin < 0.05 Urine Color Yellow Urine Appearance Clear Urine pH 6.5 Ur Specific [place] > 1.045 H Urine Protein Negative Urine Glucose (UA) Negative Urine Ketones Trace H Urine Blood Negative Urine Nitrite Negative Urine Bilirubin Negative Urine Urobilinogen Negative Ur Leukocyte Esterase Negative SARS-CoV-2 (PCR) NEGATIVE Influenza Type A (PCR) Negative Influenza Type B (PCR) Negative Urine Legionella Ag RSV (RT-PCR) Negative 08/06/21 08/06/21 08/07/21 22:23 23:00 03:33 WBC RBC Hgb Hct MCV MCH MCHC RDW Std Deviation RDW Coeff of Mil Plt Count MPV Immature Gran % (Auto) Neut % (Auto) Lymph % (Auto) [place] % (Auto) Eos % (Auto) Baso % (Auto) Neut # (Auto) Lymph # (Auto) [place] # (Auto) Eos # (Auto) Baso # (Auto) Immature Gran # (Auto) PT INR APTT PTT Ratio D-Dimer Sodium Potassium Chloride Carbon Dioxide Anion Gap BUN Creatinine Est Cr Clr Drug Dosing Est GFR ( Amer) Est GFR (Non-Af Amer) BUN/Creatinine Ratio Glucose Calcium Magnesium Total Bilirubin AST ALT Alkaline Phosphatase Troponin I < 0.03 < 0.03 Total Protein Albumin Globulin Albumin/Globulin Ratio Procalcitonin Urine Color Urine Appearance Urine pH Ur Specific [place] Urine Protein Urine Glucose (UA) Urine Ketones Urine Blood Urine Nitrite Urine Bilirubin Urine Urobilinogen Ur Leukocyte Esterase SARS-CoV-2 (PCR) Influenza Type A (PCR) Influenza Type B (PCR) Urine Legionella Ag Pending RSV (RT-PCR) 08/07/21 08/07/21 03:33 03:33 WBC 3.96 L RBC 4.10 L Hgb 13.0 Hct 38.6 MCV 94.1 MCH 31.7 MCHC 33.7 RDW Std Deviation 46.4 H RDW Coeff of Mil 13.4 Plt Count 206 MPV 10.7 H Immature Gran % (Auto) 0.0 Neut % (Auto) 50.0 Lymph % (Auto) 21.7 [place] % (Auto) 26.8 Eos % (Auto) 1.0 Baso % (Auto) 0.5 Neut # (Auto) 1.98 Lymph # (Auto) 0.86 L [place] # (Auto) 1.06 H Eos # (Auto) 0.04 Baso # (Auto) 0.02 Immature Gran # (Auto) 0.00 PT INR APTT PTT Ratio D-Dimer Sodium 137 Potassium 3.9 Chloride 105 Carbon Dioxide 23 Anion Gap 9 BUN 6 Creatinine 0.73 Est Cr Clr Drug Dosing 99.3 Est GFR ( Amer) 104.5 Est GFR (Non-Af Amer) 90.1 BUN/Creatinine Ratio 8.2 L Glucose 87 Calcium 8.4 L Magnesium 1.8 Total Bilirubin AST ALT Alkaline Phosphatase Troponin I Total Protein Albumin Globulin Albumin/Globulin Ratio Procalcitonin Urine Color Urine Appearance Urine pH Ur Specific [place] Urine Protein Urine Glucose (UA) Urine Ketones Urine Blood Urine Nitrite Urine Bilirubin Urine Urobilinogen Ur Leukocyte Esterase SARS-CoV-2 (PCR) Influenza Type A (PCR) Influenza Type B (PCR) Urine Legionella Ag RSV (RT-PCR)
[2021-08-07] MEDS: predniSONE 20 MG TAB PO SCH (12:59)
[2021-08-07] MEDS: cefTRIAXone SODIUM 2,000 MG in DEXTROSE 5% 50 ML IV SCH (20:51)
--- NOTE | 2021-08-07 23:58 | Hospitalist Progress Note ---
Date of Service August 07, 2021 Assessment & Plan (1) Pneumonia: (2) Cough: (3) Chest pain, pleuritic: Plan: Present on admission with shortness of breath associated with cough and chest pain CTA chest showed no acute PE. 3 cm airspace opacity within the left lower lobe suggestive of pneumonia. Troponin x3 negative EKG showed no acute ischemic changes ECHO showed no LV wall motion abnormality with ejection fraction 60 to 65% Cardiology on board chest pain is noncardiac as per cardiology Continue antibiotic with ceftriaxone and doxycycline We will add prednisone 40 mg continue monitor closely History of asthma: Continue her home inhalers and nebulizers p.r.n. will continue a short course of prednisone History of hypertension: Continue metoprolol succinate and lisinopril. Hyperlipidemia Continue statin. Deep venous thrombosis prophylaxis: Sequential compression devices. Admission and Anticipated Discharge Date Admission Date: August 06, 2021 Subjective Patient was seen and examined for follow-up of shortness of breath Lying in bed no acute distress Patient said breathing slightly improved denying chest pain, palpitation, dizziness, shortness of breath. Review of Systems Review of Systems: All systems reviewed & are unremarkable except as noted in Subjective Physical Exam Physical Exam: General- No acute distress Head- atraumatic Eyes- PERRL, EOMI, ENT- oropharynx clear Neck- supple, no JVD Lungs- coarse BS Heart- regular rhythm; no murmur Abdomen- normal bowel sounds, soft, nontender Extremities- no calf tenderness Neuro- alert, oriented x 3; PERRL, EOMI; no facial palsy; no dysarthria Skin- warm & dry Results & Data Results & Data ([facility]) Vital Signs (Past 12 Hours) Vital Signs Temp Pulse Pulse Resp BP BP Pulse Ox 08/07/21 23:08 69 08/07/21 22:51 37.1 C 72 18 110/62 96 08/07/21 18:35 36.9 C 92 H 20 107/69 95 08/07/21 18:06 101 H 22 95 08/07/21 16:04 36.8 C 71 19 102/48 L 97
[2021-08-08] MEDS ORDERED: COUGH DROP (SUGAR FREE) LOZ 24 LOZ/1 BOX BUCCAL PRN (05:00)
[2021-08-08] MEDS ORDERED: guaiFENesin SUGAR FREE 200 MG/10 ML UDC PO PRN ×2 (05:00→11:18)
[2021-08-08] MEDS ORDERED: COUGH DROP (SUGAR FREE) LOZ 24 LOZ/1 BOX BUCCAL ONE (05:02)
[2021-08-08] MEDS: ACETAMINOPHEN 325 MG TAB PO PRN (05:14)
[2021-08-08] MEDS: LEVALBUTEROL HCL 1.25 MG/3 ML NEB NEB PRN ×3 (07:14→22:43)
[2021-08-08] MEDS: ROSUVASTATIN CALCIUM 20 MG TAB PO SCH (08:19)
[2021-08-08] MEDS: GABAPENTIN 300 MG CAP PO SCH ×3 (08:19→21:13)
[2021-08-08] MEDS: OXYBUTYNIN CHLORIDE XL 5 MG TABCR PO SCH (08:19)
[2021-08-08] MEDS: predniSONE 20 MG TAB PO SCH (08:20)
[2021-08-08] MEDS: METOPROLOL SUCC 25MG EXT REL TAB PO SCH (08:20)
[2021-08-08] MEDS: lisinopril 5 MG TAB PO SCH (08:20)
[2021-08-08] MEDS: PANTOprazole 40 MG TAB PO SCH (08:20)
[2021-08-08] MEDS: FLUTICASONE PROPIONATE NA SPR 16 GM BTL SCH ×2 (08:21→21:12)
[2021-08-08] MEDS: FLUTICASONE/VILANTEROL 200/25MCG 14 PUFFS/INHALER INH SCH (08:21)
[2021-08-08] MEDS: DOXYCYCLINE HYCLATE 100 MG in DEXTROSE 5% 100 ML IV SCH ×2 (10:55→23:12)
[2021-08-08] MEDS: guaiFENesin 200 MG TAB PO SCH ×3 (12:13→23:18)
--- NOTE | 2021-08-08 12:56 | Electrocardiogram Report ---
Test Reason : Blood Pressure : / mmHG Vent. Rate : 066 BPM Atrial Rate : 066 BPM P-R Int : 174 ms QRS Dur : 090 ms QT Int : 422 ms P-R-T Axes : 063 -02 042 degrees QTc Int : 442 ms Normal sinus rhythm Normal ECG When compared with ECG of 07-AUG-2021 05:07, No significant change was found Confirmed by Quang Betts ([id number]) on 08/08/2021 12:56:20 PM Referred By: REFERRED SELF Confirmed By:Quang Betts
--- NOTE | 2021-08-08 19:53 | Hospitalist Progress Note ---
Date of Service August 08, 2021 Assessment & Plan (1) Pneumonia: (2) Cough: (3) Chest pain, pleuritic: Plan: Present on admission with shortness of breath associated with cough and chest pain CTA chest showed no acute PE. 3 cm airspace opacity within the left lower lobe suggestive of pneumonia. Troponin x3 negative EKG showed no acute ischemic changes ECHO showed no LV wall motion abnormality with ejection fraction 60 to 65% Cardiology on board chest pain is noncardiac as per cardiology Continue antibiotic with ceftriaxone and doxycycline Continue d prednisone 40 mg continue monitor closely Will add flutter valve and incentive spirometry Continue guaifenesin around the clock History of asthma: Continue her home inhalers and nebulizers p.r.n. Continue prednisone History of hypertension: Continue metoprolol succinate and lisinopril. Hyperlipidemia Continue statin. Deep venous thrombosis prophylaxis: Sequential compression devices. Admission and Anticipated Discharge Date Admission Date: August 06, 2021 Subjective Patient was seen and examined for follow-up of shortness of breath Lying in bed no acute distress Nurse said pt had a spelling cough that caused her to have a brocospasm Patient said breathing slightly improved denying chest pain, palpitation, dizziness, shortness of breath. Review of Systems Review of Systems: All systems reviewed & are unremarkable except as noted in Subjective Physical Exam Physical Exam: General- No acute distress Head- atraumatic Eyes- PERRL, EOMI, ENT- oropharynx clear Neck- supple, no JVD Lungs- No wheezing Heart- regular rhythm; no murmur Abdomen- normal bowel sounds, soft, nontender Extremities- no calf tenderness Neuro- alert, oriented x 3; PERRL, EOMI; no facial palsy; no dysarthria Skin- warm & dry Results & Data Results & Data ([facility]) Vital Signs (Past 12 Hours) Vital Signs Temp Pulse Pulse Resp BP Pulse Ox Pulse Ox 08/08/21 19:40 36.7 C 79 22 145/72 H 96 08/08/21 15:44 71 08/08/21 15:14 36.3 C L 69 19 115/66 95 08/08/21 11:11 36.7 C 71 18 116/67 95 08/08/21 09:19 70 08/08/21 09:00 95
[2021-08-08] MEDS: cefTRIAXone SODIUM 2,000 MG in DEXTROSE 5% 50 ML IV SCH (22:40)
[2021-08-08] MEDS: LORazepam 0.5 MG TAB PO PRN (23:13)
[2021-08-09] MEDS: guaiFENesin 200 MG TAB PO SCH ×4 (06:39→23:46)
[2021-08-09] MEDS: IPRATROPIUM BROMIDE NEB SOLN 0.02% 2.5 ML VIAL INH SCH ×4 (07:03→19:29)
[2021-08-09] MEDS: LEVALBUTEROL 1.25MG/0.5ML NEB INH SCH ×4 (07:03→19:29)
[2021-08-09] MEDS: FLUTICASONE PROPIONATE NA SPR 16 GM BTL SCH ×2 (08:40→20:22)
[2021-08-09] MEDS: FLUTICASONE/VILANTEROL 200/25MCG 14 PUFFS/INHALER INH SCH (08:41)
[2021-08-09] MEDS: PANTOprazole 40 MG TAB PO SCH (08:43)
[2021-08-09] MEDS: lisinopril 5 MG TAB PO SCH (08:43)
[2021-08-09] MEDS: OXYBUTYNIN CHLORIDE XL 5 MG TABCR PO SCH (08:43)
[2021-08-09] MEDS: predniSONE 20 MG TAB PO SCH (08:43)
[2021-08-09] MEDS: GABAPENTIN 300 MG CAP PO SCH ×3 (08:43→20:24)
[2021-08-09] MEDS: ROSUVASTATIN CALCIUM 20 MG TAB PO SCH (08:43)
[2021-08-09] MEDS: METOPROLOL SUCC 25MG EXT REL TAB PO SCH (08:43)
[2021-08-09] MEDS: ACETAMINOPHEN 325 MG TAB PO PRN ×2 (08:50→14:36)
[2021-08-09] MEDS ORDERED: XOPENEX/ATROVENT 1.25mg/0.5MG NEB COMBO NEB SCH (09:00)
[2021-08-09] MEDS: DOXYCYCLINE HYCLATE 100 MG in DEXTROSE 5% 100 ML IV SCH ×2 (11:15→22:59)
--- NOTE | 2021-08-09 21:57 | Hospitalist Progress Note ---
Date of Service August 09, 2021 Assessment & Plan (1) Pneumonia: (2) Cough: (3) Chest pain, pleuritic: Plan: Present on admission with shortness of breath associated with cough and chest pain CTA chest showed no acute PE. 3 cm airspace opacity within the left lower lobe suggestive of pneumonia. Troponin x3 negative EKG showed no acute ischemic changes ECHO showed no LV wall motion abnormality with ejection fraction 60 to 65% Cardiology on board chest pain is noncardiac as per cardiology Continue antibiotic with ceftriaxone and doxycycline Continue prednisone 40 mg Conitinue flutter valve and incentive spirometry Continue guaifenesin around the clock Continue to wean off oxygen History of asthma: Continue her home inhalers and nebulizers p.r.n. Continue prednisone History of hypertension: Continue metoprolol succinate and lisinopril. Hyperlipidemia Continue statin. DVP px on SCD Will start on Lovenox subq Admission and Anticipated Discharge Date Admission Date: August 06, 2021 Subjective Patient was seen and examined for follow-up of shortness of breath Lying in bed no acute distress Patient said her breathing feels much better today She said her cough is getting little loose where she can bring the phlegm up Patient said breathing slightly improved denying chest pain, palpitation, dizzin ess, shortness of breath. Review of Systems Review of Systems: All systems reviewed & are unremarkable except as noted in Subjective Physical Exam Physical Exam: General- No acute distress Head- atraumatic Eyes- PERRL, EOMI, ENT- oropharynx clear Neck- supple, no JVD Lungs- No wheezing Heart- regular rhythm; no murmur Abdomen- normal bowel sounds, soft, nontender Extremities- no calf tenderness Neuro- alert, oriented x 3; PERRL, EOMI; no facial palsy; no dysarthria Skin- warm & dry Results & Data Results & Data ([facility]) Vital Signs (Past 12 Hours) Vital Signs Temp Pulse Pulse Pulse Resp BP Pulse Ox 08/09/21 20:11 36.6 C 80 20 121/64 93 08/09/21 19:31 71 16 96 08/09/21 18:38 19 90 08/09/21 16:24 36.5 C 85 18 147/73 H 92 08/09/21 14:56 73 17 95 08/09/21 14:00 80 08/09/21 11:53 36.3 C L 78 18 113/68 95 08/09/21 10:47 83 18 97
[2021-08-09] MEDS: LORazepam 0.5 MG TAB PO PRN (23:00)
[2021-08-09] MEDS: ENOXAPARIN INJ 40 MG/0.4 ML SYR SQ SCH (23:00)
[2021-08-09] MEDS: cefTRIAXone SODIUM 2,000 MG in DEXTROSE 5% 50 ML IV SCH (23:00)
[2021-08-10] MEDS: guaiFENesin 200 MG TAB PO SCH ×4 (05:53→23:05)
[2021-08-10] MEDS: IPRATROPIUM BROMIDE NEB SOLN 0.02% 2.5 ML VIAL INH SCH ×4 (07:05→19:49)
[2021-08-10] MEDS: LEVALBUTEROL 1.25MG/0.5ML NEB INH SCH ×4 (07:05→19:49)
[2021-08-10] MEDS: ACETAMINOPHEN 325 MG TAB PO PRN ×2 (08:07→23:15)
[2021-08-10] MEDS: FLUTICASONE PROPIONATE NA SPR 16 GM BTL SCH ×2 (08:07→20:31)
[2021-08-10] MEDS: FLUTICASONE/VILANTEROL 200/25MCG 14 PUFFS/INHALER INH SCH (08:08)
[2021-08-10] MEDS: lisinopril 5 MG TAB PO SCH (08:08)
[2021-08-10] MEDS: GABAPENTIN 300 MG CAP PO SCH ×3 (08:08→20:32)
[2021-08-10] MEDS: METOPROLOL SUCC 25MG EXT REL TAB PO SCH (08:09)
[2021-08-10] MEDS: OXYBUTYNIN CHLORIDE XL 5 MG TABCR PO SCH (08:09)
[2021-08-10] MEDS: predniSONE 20 MG TAB PO SCH (08:10)
[2021-08-10] MEDS: ROSUVASTATIN CALCIUM 20 MG TAB PO SCH (08:10)
[2021-08-10] MEDS: PANTOprazole 40 MG TAB PO SCH (08:10)
[2021-08-10] MEDS: ACETYLCYSTEINE 10% INHAL SOLN 4 ML **DISPENSED BY RESP. INH SCH ×2 (11:23→19:49)
[2021-08-10] MEDS: DOXYCYCLINE HYCLATE 100 MG in DEXTROSE 5% 100 ML IV SCH ×2 (11:34→23:05)
[2021-08-10] MEDS: ENOXAPARIN INJ 40 MG/0.4 ML SYR SQ SCH (20:31)
--- NOTE | 2021-08-10 21:15 | Hospitalist Progress Note ---
Date of Service August 10, 2021 Assessment & Plan (1) Pneumonia: (2) Cough: (3) Chest pain, pleuritic: Plan: Present on admission with shortness of breath associated with cough and chest pain CTA chest showed no acute PE. 3 cm airspace opacity within the left lower lobe suggestive of pneumonia. Troponin x3 negative EKG showed no acute ischemic changes ECHO showed no LV wall motion abnormality with ejection fraction 60 to 65% Cardiology on board chest pain is noncardiac as per cardiology Continue antibiotic with ceftriaxone and doxycycline Continue prednisone 40 mg Conitinue flutter valve and incentive spirometry Continue guaifenesin around the clock Mucomyst inhaler added BID Continue to wean off oxygen Will need a 2 step exercise on discharge History of asthma: Continue her home inhalers and nebulizers p.r.n. Continue prednisone History of hypertension: Continue metoprolol succinate and lisinopril. Hyperlipidemia Continue statin. DVT px on Lovenox subq Disposition Will discharge home tomorrow Admission and Anticipated Discharge Date Admission Date: August 06, 2021 Subjective Patient was seen and examined for follow-up of shortness of breath Lying in bed no acute distress Patient said her breathing feels much better today Pt is very anxious to go home Pt became SOB and dizzy when she walked to the bathroom. She said that her oxygen dropped She said that she had chest discomfort during the episode that resolved when came to rest in the bed Currently denying any chest pain, palpitation, dizziness, shortness of breath. Review of Systems Review of Systems: All systems reviewed & are unremarkable except as noted in Subjective Physical Exam Physical Exam: General- No acute distress Head- atraumatic Eyes- PERRL, EOMI, ENT- oropharynx clear Neck- supple, no JVD Lungs- No wheezing Heart- regular rhythm; no murmur Abdomen- normal bowel sounds, soft, nontender Extremities- no calf tenderness Neuro- alert, oriented x 3; PERRL, EOMI; no facial palsy; no dysarthria Skin- warm & dry Results & Data Results & Data ([facility]) Vital Signs (Past 12 Hours) Vital Signs Temp Pulse Pulse Resp BP Pulse Ox 08/10/21 19:49 80 20 94 08/10/21 19:21 36.4 C L 83 22 127/78 94 08/10/21 16:18 89 08/10/21 16:03 36.5 C 90 20 137/69 94 03/01/22 15:07 78 18 94 08/10/21 12:44 71 08/10/21 12:15 36.6 C 77 19 153/76 H 96 08/10/21 11:25 69 20 94
[2021-08-10] MEDS: cefTRIAXone SODIUM 2,000 MG in DEXTROSE 5% 50 ML IV SCH (23:05)
[2021-08-11] MEDS: LORazepam 0.5 MG TAB PO PRN (01:30)
[2021-08-11] MEDS: guaiFENesin 200 MG TAB PO SCH ×2 (05:57→11:32)
[2021-08-11] MEDS: LEVALBUTEROL 1.25MG/0.5ML NEB INH SCH ×2 (07:12→11:35)
[2021-08-11] MEDS: IPRATROPIUM BROMIDE NEB SOLN 0.02% 2.5 ML VIAL INH SCH ×2 (07:12→11:35)
[2021-08-11] MEDS: ACETYLCYSTEINE 10% INHAL SOLN 4 ML **DISPENSED BY RESP. INH SCH (07:13)
[2021-08-11] MEDS: OXYBUTYNIN CHLORIDE XL 5 MG TABCR PO SCH (08:28)
[2021-08-11] MEDS: predniSONE 20 MG TAB PO SCH (08:28)
[2021-08-11] MEDS: lisinopril 5 MG TAB PO SCH (08:28)
[2021-08-11] MEDS: PANTOprazole 40 MG TAB PO SCH (08:28)
[2021-08-11] MEDS: GABAPENTIN 300 MG CAP PO SCH (08:28)
[2021-08-11] MEDS: METOPROLOL SUCC 25MG EXT REL TAB PO SCH (08:29)
[2021-08-11] MEDS: ROSUVASTATIN CALCIUM 20 MG TAB PO SCH (08:29)
[2021-08-11] MEDS: FLUTICASONE PROPIONATE NA SPR 16 GM BTL SCH (08:30)
[2021-08-11] MEDS: FLUTICASONE/VILANTEROL 200/25MCG 14 PUFFS/INHALER INH SCH (08:31)
--- NOTE | 2021-08-11 11:30 | Hospitalist Progress Note ---
Date of Service August 11, 2021 Assessment & Plan (1) Pneumonia: Plan: Continue antibiotic with ceftriaxone and doxycycline Continue prednisone 40 mg Conitinue flutter valve and incentive spirometry Continue guaifenesin around the clock Mucomyst inhaler added BID Continue to wean off oxygen Will need a 2 step exercise on discharge -passed 2 step saturation test Be discharged home on Ceftin and doxycycline to finish the course (2) Cough: Plan: Secondary (3) Chest pain, pleuritic: Plan: Present on admission with shortness of breath associated with cough and chest pain CTA chest showed no acute PE. 3 cm airspace opacity within the left lower lobe suggestive of pneumonia. Troponin x3 negative EKG showed no acute ischemic changes ECHO showed no LV wall motion abnormality with ejection fraction 60 to 65% Cardiology on board-appreciate input and recommendation Chest pain is noncardiac as per cardiology History of asthma: Continue her home inhalers and nebulizers p.r.n. Continue prednisone-we will taper over 9 days Strongly advised to avoid stimulants for bronchospasm History of hypertension: Continue metoprolol succinate and lisinopril. Hyperlipidemia Continue statin. DVT px on Lovenox subq Disposition Will discharge home tomorrow Admission and Anticipated Discharge Date Admission Date: August 06, 2021 Subjective 08/11/2021 The patient was seen and examined in telemetry unit She has been complaining of minimal wheezing but no shortness of breath at rest She passed 2 steps O2 saturation test She will be discharged this afternoon Review of Systems Review of Systems: All systems reviewed and are unremarkable except as noted below Physical Exam Physical Exam: Lying in bed comfortably Constitutional: well developed, well nourished and + obese; not ill appearing Eyes: PERRL, conjunctivae normal, anicteric sclerae ENMT: external ear and nose normal, oropharynx normal Neck: trachea midline, no thyromegaly Respiratory: no respiratory distress Auscultation: + diminished lung sounds, + crackles (Crackles at the bases) and + wheezes (Minimal wheezing all over) Cardiovascular: Rate/Rhythm: regular rate and regular rhythm; not tachycardic Heart Sounds: normal S1 and normal S2; no murmur Extremities: no edema Gastrointestinal (Abdomen): Inspection/Auscultation: normal bowel sounds; abdomen not distended Percussion/Palpation: abdomen soft; abdomen nontender Musculoskeletal: No acute arthritis in any joint Neurologic: Alert, awake and oriented x3 Results & Data Results & Data ([facility]) Vital Signs (Past 12 Hours) Vital Signs Temp Pulse Pulse Pulse Pulse Pulse Resp 08/11/21 09:00 08/11/21 08:38 82 80 78 08/11/21 07:29 36.5 C 57 L 20 08/11/21 07:15 76 08/11/21 03:31 36.5 C 65 18 Resp Resp Resp BP Pulse Ox Pulse Ox Pulse Ox 08/11/21 09:00 95 08/11/21 08:38 20 18 18 94 95 08/11/21 07:29 113/80 100 08/11/21 07:15 97 08/11/21 03:31 154/91 H 98 Pulse Ox 08/11/21 09:00 08/11/21 08:38 95 08/11/21 07:29 08/11/21 07:15 08/11/21 03:31
[2021-08-11] MEDS: DOXYCYCLINE HYCLATE 100 MG in DEXTROSE 5% 100 ML IV SCH (11:32)
[2021-08-11] MEDS ORDERED: cefUROXime axetil 500 MG TAB PO SCH (12:00)
--- NOTE | 2021-08-11 16:14 | Electrocardiogram Report ---
Test Reason : Blood Pressure : / mmHG Vent. Rate : 087 BPM Atrial Rate : 087 BPM P-R Int : 156 ms QRS Dur : 082 ms QT Int : 378 ms P-R-T Axes : 072 017 047 degrees QTc Int : 454 ms Normal sinus rhythm Poor R wave progression, consider anterior IN vs. lead placement vs. LVH Possible Inferior infarct , age undetermined Abnormal ECG When compared with ECG of 08-AUG-2021 04:40, No significant change was found Confirmed by Quang Betts ([id number]) on 08/11/2021 4:13:52 PM Referred By: REFERRED SELF Confirmed By:Quang Betts
[2021-08-11] MEDS ORDERED: DOXYCYCLINE HYCLATE 100 MG CAP PO SCH (21:00)
--- NOTE | 2021-08-12 08:28 | Discharge Summary ---
Date of Service August 12, 2021 Admission HPI Per Admitting Provider DICTATED BY:Fernando Campbell MD DATE OF ADMISSION: 08/06/2021. CHIEF COMPLAINT: Cough, fever and chest pain. HISTORY OF PRESENT ILLNESS: This is a 60-year-old female with past medical his tory significant for obstructive sleep apnea, chronic cough, mild asthma, allergic rhinitis, history of hot flashes, history of GERD, who presents with cough and fever and chest pain. The patient says since last Monday, she is having lot of dry cough and she has high fevers and generalized weakness. Today she has developed chest pain, moderate in severity in the middle of the chest, no radiation and she tested COVID at home and it was negative. She had a telemedicine with her family doctor. She has been vaccinated for COVID and also boosted and also it looks like she had tested for COVID antibodies with good levels. Her family doctor advised to come to the ER. In the ER also, COVID PCR test is negative and influenza A and B negative and RSV negative. CTA chest was done, which shows 3 cm airspace opacity in the left lower lobe suggestive of pneumonia. She has some EKG changes. Troponin is negative. Procalcitonin is negative. She has leukopenia and her D-dimer is elevated at 1080. Currently complains of some headache, no blurred visions. Has runny nose, some ear pressure, sore throat, saturating okay on room air. Has nausea, no vomiting, no abdominal pain, no blood or black stools. Normal bladder movements. No swelling in the legs. She says her chest pain is similar to her admission she had in December last year , at that time a cardiac catheterization was done, which showed mild CAD. Admission Exam Per Admitting Provider GENERAL: The patient is obese, not in acute distress. VITAL SIGNS: Temperature 37.2, pulse 88, respiratory rate 16, blood pressure 180/110, oxygen 94% on room air. HEENT: Pupils equal, round and reactive to light. Oral mucosa moist. NECK: No JVD, no neck masses. CARDIOVASCULAR: S1 and S2 heard. Regular rate and rhythm. No murmur, no gallop. RESPIRATORY SYSTEM: Normal AP diameter. No accessory muscle use. No wheezing, no crackles. ABDOMEN: Soft, bowel sounds present, nontender, no distention. CENTRAL NERVOUS SYSTEM: Cranial nerves II-XII grossly intact, nonfocal. EXTREMITIES: No edema, no erythema. Principal Diagnosis Pneumonia, exacerbation of asthma Discharge Exam Lying in bed comfortably Constitutional well developed, well nourished and + obese; not ill appearing Eyes PERRL, conjunctivae normal, anicteric sclerae ENMT external ear and nose normal, oropharynx normal Neck trachea midline, no thyromegaly Respiratory no respiratory distress Auscultation: + diminished lung sounds, + crackles (Crackles at the bases) and + wheezes (Minimal wheezing all over) Cardiovascular Rate/Rhythm: regular rate and regular rhythm; not tachycardic Heart Sounds: normal S1 and normal S2; no murmur Extremities: no edema Gastrointestinal (Abdomen) Inspection/Auscultation: normal bowel sounds; abdomen not distended Percussion/Palpation: abdomen soft; abdomen nontender Discharge Data Allergies Allergy/AdvReac Type Severity Reaction Status Date / Time chlorhexidine Allergy Unknown Verified 08/11/21 19:56 latex Allergy Unknown Verified 08/11/21 19:56 nickel Allergy Unknown Verified 08/11/21 19:56 oxycodone Allergy (PERCOCET Verified 08/11/21 19:56 BUT NOT OXY OR APAP; PER PATIENT)-UNKNOWN RXN tomato Allergy Unknown Verified 08/11/21 19:56 Consultations 08/06/21 18:20 ED Decision to Admit Stat 08/07/21 08:00 Consult Cardiology Routine Ordered Studies 08/06/21 15:24 CT angio chest PE protocol Stat Hospital Course (1) Pneumonia: Continue antibiotic with ceftriaxone and doxycycline Continue prednisone 40 mg Conitinue flutter valve and incentive spirometry Continue guaifenesin around the clock Mucomyst inhaler added BID Continue to wean off oxygen Will need a 2 step exercise on discharge -passed 2 step saturation test Be discharged home on Ceftin and doxycycline to finish the course (2) Cough: Secondary (3) Chest pain, pleuritic: Present on admission with shortness of breath associated with cough and chest pain CTA chest showed no acute PE. 3 cm airspace opacity within the left lower lobe suggestive of pneumonia. Troponin x3 negative EKG showed no acute ischemic changes ECHO showed no LV wall motion abnormality with ejection fraction 60 to 65% Cardiology on board-appreciate input and recommendation Chest pain is noncardiac as per cardiology History of asthma: Continue her home inhalers and nebulizers p.r.n. Continue prednisone-we will taper over 9 days Strongly advised to avoid stimulants for bronchospasm History of hypertension: Continue metoprolol succinate and lisinopril. Hyperlipidemia Continue statin. DVT px on Lovenox subq Disposition Will discharge home tomorrow Total Time Total Time Spent Total Time Spent (In Minutes): 35 minutes Discharge Plan Discharge Items Patient Disposition: Home - Self-Care Reason For Visit: RESP PROBLEMS, CHEST PAIN Discharge Diagnosis: Pneumonia, exacerbation of asthma Condition on Discharge: Fair Activity: Resume your previous activity Non-emergency contact: Primary Care Provider Call non-emergency contact if: you have any medication questions and your symptoms worsen Follow-up/Referrals: Basia Brown MD [Primary Care Provider] - (Date & Time 08/13/2021 9:00 AM Provider Kevin Mcmullen PA-C Department General Internal Medicine [facility] ) Diet: Heart Healthy Addtl Attending Provider Instructions: Please try to avoid the irritants to avoid any exacerbation as advised Finish the course of antibiotic and also tapering dose of prednisone Use nebulizer solution as advised Please give appointment with your healthcare providers Pending Studies at Discharge: No Stand-Alone Forms: My [employer], Smoking Cessation Medications and DC Order Prescriptions: New doxycycline hyclate 100 mg Capsule 100 mg PO BID 5 Days Qty: 10 RF: 0 cefuroxime axetil 500 mg Tablet 500 mg PO BID 5 Days Qty: 10 RF: 0 levalbuterol HCl 1.25 mg/0.5 mL Solution For Nebulization 1.25 mg inhalation QIDR PRN (Reason: Shortness Of Breath Or Wheezing) 30 Days Qty: 50 RF: 0 prednisone 10 mg tablet 10 mg PO UD Qty: 18 RF: 0 Lactinex 1 million cell tablet,chewable 1 tab PO BID Qty: 30 RF: 0 fluconazole [Diflucan] 150 mg tablet 150 mg PO DAILY Qty: 1 RF: 0 Continued gabapentin 300 mg capsule 300 mg PO TID RF: 0 acetaminophen [Tylenol Extra Strength] 500 mg Tablet 1,000 mg PO Q6H PRN (Reason: Fever Or Pain) RF: 0 ibuprofen 200 mg Tablet 400 mg PO Q6H PRN (Reason: Fever Or Pain) RF: 0 oxybutynin chloride 5 mg tablet extended release 24hr 5 mg PO DAILY RF: 0 omeprazole 20 mg capsule,delayed release(DR/EC) 20 mg PO DAILY RF: 0 lisinopril 5 mg tablet 5 mg PO DAILY RF: 0 metoprolol succinate 25 mg tablet extended release 24 hr 25 mg PO DAILY RF: 0 fluticasone propionate 50 mcg/actuation spray,suspension 2 spray INTRANASAL BID RF: 0 rosuvastatin 40 mg tablet 40 mg PO DAILY RF: 0 fluticasone propion-salmeterol [Advair Diskus] 250-50 mcg/dose Blister With Device 1 inh INHALATION BID RF: 0 Discharge Orders: Discharge Order (Routine); Ordered 08/11/21 Ordered By: Miguel Holder Admission Data Admit Date/Time: 08/06/21 19:05 Attending Provider: Miguel Holder Admit Provider: Fernando Campbell Primary Care Provider: Basia Brown Other Providers: Omari Lacey Rajendra P. Other Interventions: Discharge Summary Assessment (RN) Last Done: 08/11/21 12:11
--- NOTE | 2021-08-19 11:47 | Coding Query ---
PRESENT ON ADMISSION QUERY To promote full compliance with coding requirements relating to pateint care, physician participation is requested in all cases of morgue technician uncertainty. Please assist us with the question(s) below: Please place an X within the parenthesis (x). The following diagnosis(es) listed in this patient's medical record require physician assistance to determine if they were present on admission (POA) or not. Please advise for each diagnosis whether it was present on admission, not present on admission, or if it was clinically undetermined. EXACERBATION OF ASTHMA ( ) Present On Admission ( +) Not Present On Admission ( ) Clinically Undetermined Thank you Cee Albert *Definition of the present on admission (POA)-Present on admission is defined as present at the time the order for inpatient admission occurs. Conditions that develop during an outpatient encounter prior to a written order for inpatient admission (including emergency department, observation, or outpatient surgery) are considered present on admission. ALEXAD
== END 2021-08-11 13:13 | disposition home or self-care (01) | DRG 194 ==
LOC: ED 13:30 → SUATTDRO 19:05 → 2S 19:05